=== PATIENT | female | born 1995 | race Caucasian/White ===

== ENCOUNTER 2016-10-26 16:27 | Inpatient (IN) | payer OTHER ==
[2016-10-26 19:22] VITALS: BMI 26.5
--- NOTE | 2016-10-26 21:08 | HP ---
Admission ROS [facility] Chief Complaint: I WANT TO GO TO REHAB Allergies/Adverse Reactions: Allergies Allergy/AdvReac Type Severity Reaction Status Date / Time No Known Allergies Allergy Verified 02/10/16 15:33 History of Present Illness: 21 YEARS OLD FEMALE WITH LONG HISTORY OF OPIOID COCAINE NICOTINE DEPENDENCE DENIES MEDICAL ISSUE HAS BIPOLAR II IS ADMITTED TO REHAB Exam Limitations: No Limitations - Ebola screening Have you traveled outside of the country in the last 21 days: No Have you had contact with anyone from an Ebola affected area: No Have you been sick,other than usual withdrawal symptoms: No Do you have a fever: No - Review of Systems Constitutional: Weight Stable EENT: reports: No Symptoms Reported Respiratory: reports: No Symptoms reported Cardiac: reports: No Symptoms Reported GI: reports: Indigestion : reports: No Symptoms Reported Musculoskeletal: reports: No Symptoms Reported Integumentary: reports: No Symptoms Reported Neuro: reports: No Symptoms reported Endocrine: reports: No Symptoms Reported Hematology: reports: No Symptoms Reported Psychiatric: reports: Judgement Intact, Orientated x3, Anxious, Depressed Other Systems: Reviewed and Negative Patient History - Patient Medical History Hx Anemia: Yes (X 3 YEARS NO TREATMENT) Hx Asthma: No Hx Chronic Obstructive Pulmonary Disease (COPD): No Hx Cancer: No Hx Cardiac Disorders: No Hx Congestive Heart Failure: No Hx Hypertension: No Hx Hypercholesterolemia: No Hx Pacemaker: No HX Cerebrovascular Accident: No Hx Seizures: No Hx Dementia: No Hx Diabetes: No Hx Gastrointestinal Disorders: Yes Hx Liver Disease: No Hx Genitourinary Disorders: No Hx Sexually Transmitted Disorders: No Hx Renal Disease (ESRD): No Hx Thyroid Disease: No Hx Human Immunodeficiency Virus (HIV): No (LAST O01/20 NEGATIVE) Hx Hepatitis C: No Hx Depression: Yes Hx Suicide Attempt: No Hx Bipolar Disorder: No Hx Schizophrenia: No - Patient Surgical History Past Surgical History: Yes Hx Neurologic Surgery: No Hx Cataract Extraction: No Hx Cardiac Surgery: No Hx Lung Surgery: No Hx Breast Surgery: No Hx Breast Biopsy: No Hx Abdominal Surgery: Yes (APPENDECTOMY AGE AGE OF 6 YEARS) Hx Appendectomy: No Hx Cholecystectomy: No Hx Genitourinary Surgery: No Hx Section: No Hx Orthopedic Surgery: Yes (LEFT LEG FX 2013 [facility]) Hx Hysterectomy: No Anesthesia Reaction: No - PPD History Previous Implant?: Yes Documented Results: Negative w/o proof Implanted On Prior R Admission?: Yes Date: 11/05/15 Results: NEG PPD to be Administered?: Yes - Reproductive History Patient is a Female of Child Bearing Age (11 -55 yrs old): Yes Last Menstrual Period: 09/24/16 Patient : No - Smoking Cessation Smoking history: Current every day smoker Have you smoked in the past 12 months: Yes Aproximately how many cigarettes per day: 5 Cigars Per Day: 0 Hx Chewing Tobacco Use: No Initiated information on smoking cessation: Yes 'Breaking Loose' booklet given: 10/26/16 - Substance & Tx. History Hx Alcohol Use: No Hx Substance Use: Yes Substance Use Type: Cocaine, Opiates Hx Substance Use Treatment: Yes - Substances Abused Heroin Route: Injection Frequency: Daily Amount used: 9 BAGS Age of first use: 16 Date of Last Use: 09/26/16 Cocaine Route: Injection Frequency: Daily Amount used: 100$ Age of first use: 18 Date of Last Use: 09/26/16 Family Disease History - Family Disease History Family Disease History: Heart Disease: Grandparent (HTN), Mother (HTN), Other: Father (alcohol) Admission Physical Exam S - Vital Signs Vital Signs: Vital Signs - 24 hr 10/26/16 19:18 Temperature 97.8 F Pulse Rate 71 Respiratory 18 Rate Blood Pressure 124/85 - Physical General Appearance: Yes: No Apparent Distress, Nourished, Appropriately Dressed HEENTM: Yes: Hearing grossly Normal, Normal ENT Inspection, Normocephalic, Normal Voice Respiratory: Yes: Chest Non-Tender, Lungs Clear, Normal Breath Sounds, No Respiratory Distress, No Accessory Muscle Use Neck: Yes: Supple, Trachea in good position Breast: Yes: Breasts Symetrical Cardiology: Yes: Regular Rhythm, Regular Rate, S1, S2 Abdominal: Yes: Non Tender, Soft Genitourinary: Yes: Within Normal Limits Back: Yes: Normal Inspection Musculoskeletal: Yes: full range of Motion, Gait Steady Extremities: Yes: Normal Inspection, Normal Range of Motion, Non-Tender Neurological: Yes: Fully Oriented, Alert, Motor Strength 5/5, Normal Response, Depressed Affect Integumentary: Yes: Warm, Track Parikh (OLD - "A MONTH AGO") Lymphatic: Yes: Within Normal Limits - Diagnostic (1) Nicotine dependence Current Visit: Yes Status: Acute Qualifiers: Nicotine product type: cigarettes Substance use status: in withdrawal Qualified Code(s): F17.213 - Nicotine dependence, cigarettes, with withdrawal (2) Opioid dependence with withdrawal Current Visit: Yes Status: Acute (3) Cocaine dependence, uncomplicated Current Visit: Yes Status: Chronic (4) GERD (gastroesophageal reflux disease) Current Visit: Yes Status: Chronic Qualifiers: Esophagitis presence: without esophagitis Qualified Code(s): K21.9 - Gastro-esophageal reflux disease without esophagitis Cleared for Admission [facility] - Detox or Rehab [facility] Level of Care: Observation Bed Detox Regimen/Protocol: Not Applicable Claeared for Rehab Admission: Yes [facility] Breath Alcohol Content Breath Alcohol Content: 0 Urine Pregancy Test - Result Urine Test Results: Negative- NO Line Present Urine Drug Screen - Results Drug Screen Negative: Yes
[2016-10-26] MEDS ORDERED: MAGNESIUM HYDROX 2400MG/30ML ORAL SUSPENSION 30 ML CUP PO PRN (21:25)
[2016-10-26] MEDS ORDERED: MAG HYDROX/AL HYDROX/SIMETH 30 ML UNIT-DOSE CUP PO PRN (21:25)
[2016-10-26] MEDS ORDERED: P-EPHED 60MG/TRIPROLIDI 2.5MG TABLET PO PRN (21:25)
[2016-10-26] MEDS ORDERED: guaiFENesin/D-METHORPHAN HB 10 ML UNIT-DOSE CUPS PO PRN (21:25)
[2016-10-26] MEDS ORDERED: LOPERAMIDE HCL 2 MG CAPSULE PO PRN (21:25)
[2016-10-26] MEDS ORDERED: MENTHOL/PHENOL 1 EACH UD MM PRN (21:25)
[2016-10-26] MEDS ORDERED: diphenhydrAMINE HCL 50 MG CAPSULE PO PRN (21:25)
[2016-10-26] MEDS ORDERED: NICOTINE POLACRILEX 2 MG GUM BC PRN (21:25)
[2016-10-26] MEDS ORDERED: MAGNESIUM CITRATE 300 ML BOTTLE PO PRN (21:25)
[2016-10-26] MEDS ORDERED: LITHIUM CARBONATE 300 MG CAPSULE (FP) PO SCH (23:00)
[2016-10-26 23:02] LABS: URINE APPEARANCE CLOUDY; URINE BILIRUBIN NEGATIVE (NEGATIVE); URINE BLOOD NEGATIVE (NEGATIVE); URINE COLOR LTYELLOW; URINE GLUCOSE (UA) NEGATIVE (NEGATIVE); URINE KETONE NEGATIVE (NEGATIVE); URINE NITRITE NEGATIVE (NEGATIVE); URINE PROTEIN NEGATIVE (NEGATIVE); URINE UROBILINOGEN NEGATIVE E.U./dl (0.2-1.0)
[2016-10-26 23:10] LABS: URINE LEUK ESTERASE 1+ (NEGATIVE)
[2016-10-26 23:13] LABS: URINE MUCUS RARE; URINE RBC 1 /hpf (0-3); URINE WBC 3 /hpf (3-5)
[2016-10-26] MEDS: THIAMINE HCL 100 MG TABLET (FP) PO SCH (23:22)
[2016-10-26] MEDS: RANITIDINE HCL 150 MG TABLET (FP) PO SCH (23:22)
[2016-10-26] MEDS: QUEtiapine FUMARATE 300 MG TABLET PO SCH (23:22)
[2016-10-26] MEDS: LITHIUM CARBONATE 300 MG CAPSULE (FP) PO SCH (23:43)
[2016-10-27] MEDS ORDERED: PT OWN MED DRAWER 7, Y5N ONE ×2 (05:50→08:49)
[2016-10-27] MEDS: LITHIUM CARBONATE 300 MG CAPSULE (FP) PO SCH ×3 (06:57→21:26)
[2016-10-27] MEDS: PRENATAL VITAMINS W/ FOLIC ACID TABLET (FP) PO SCH (09:37)
[2016-10-27] MEDS: NICOTINE 14 MG/24 HOURS TOPICAL PATCH TD SCH (09:37)
[2016-10-27] MEDS: RANITIDINE HCL 150 MG TABLET (FP) PO SCH ×2 (09:38→21:26)
[2016-10-27 10:11] LABS: MCHC 33.4 g/dl (32.0-36.0); MEAN CELL VOLUME 83.9 fl (80-96); PLATELET COUNT 199 K/MM3 (134-434); RDW 13.5 % (11.6-15.6); WHITE BLOOD COUNT 5.6 K/mm3 (4.0-10.0)
[2016-10-27 10:35] LABS: ALBUMIN 3.7 g/dl (3.4-5.0); ANION GAP 12 (8-16); CO2 24 mmol/L (21-32); CREATININE 0.9 mg/dL (0.55-1.02); GLUCOSE,RANDOM 126 mg/dL (74-106); SGOT/AST 15 U/L (15-37); SGPT/ALT 20 U/L (12-78)
[2016-10-27 10:37] LABS: ALK PHOS 66 U/L (45-117); BILIRUBIN,TOTAL 0.4 mg/dL (0.2-1.0); TOT PROT 7.8 g/dl (6.4-8.2)
--- NOTE | 2016-10-27 11:44 | EKG ---
Test Reason : Blood Pressure : / mmHG Vent. Rate : 080 BPM Atrial Rate : 080 BPM P-R Int : 206 ms QRS Dur : 082 ms QT Int : 394 ms P-R-T Axes : 060 088 067 degrees QTc Int : 454 ms NORMAL SINUS RHYTHM CANNOT RULE OUT SEPTAL INFARCT , AGE UNDETERMINED ABNORMAL ECG NO PREVIOUS ECGS AVAILABLE Confirmed by EFREN ALVAREZ, JOYCE ([id number]) on 10/27/2016 11:44:07 AM Referred By: Thao Lu Confirmed By:JOYCE SCHWARTZ MD
[2016-10-27] MEDS: ACETAMINOPHEN 325 MG TABLET (FP) PO PRN (15:11)
[2016-10-27] MEDS: THIAMINE HCL 100 MG TABLET (FP) PO SCH (21:25)
[2016-10-27] MEDS: QUEtiapine FUMARATE 300 MG TABLET PO SCH (21:26)
[2016-10-28] MEDS: LITHIUM CARBONATE 300 MG CAPSULE (FP) PO SCH ×3 (06:42→21:27)
[2016-10-28] MEDS: PRENATAL VITAMINS W/ FOLIC ACID TABLET (FP) PO SCH (10:19)
[2016-10-28] MEDS: NICOTINE 14 MG/24 HOURS TOPICAL PATCH TD SCH (10:19)
[2016-10-28] MEDS: RANITIDINE HCL 150 MG TABLET (FP) PO SCH ×2 (10:19→21:27)
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
[2016-10-28] MEDS: FLUoxetine HCL 20 MG CAPSULE (FP) PO SCH (12:00)
[2016-10-28] MEDS: ACETAMINOPHEN 325 MG TABLET (FP) PO PRN (17:05)
[2016-10-28] MEDS: THIAMINE HCL 100 MG TABLET (FP) PO SCH (21:26)
[2016-10-28] MEDS: QUEtiapine FUMARATE 300 MG TABLET PO SCH (21:27)
[2016-10-28] MEDS: hydrOXYzine PAMOATE 50 MG CAPSULE (FP) PO PRN (21:28)
[2016-10-29] MEDS: LITHIUM CARBONATE 300 MG CAPSULE (FP) PO SCH ×3 (06:25→21:29)
[2016-10-29] MEDS: RANITIDINE HCL 150 MG TABLET (FP) PO SCH ×2 (10:34→21:30)
[2016-10-29] MEDS: FLUoxetine HCL 20 MG CAPSULE (FP) PO SCH (10:34)
[2016-10-29] MEDS: NICOTINE 14 MG/24 HOURS TOPICAL PATCH TD SCH (10:35)
[2016-10-29] MEDS: PRENATAL VITAMINS W/ FOLIC ACID TABLET (FP) PO SCH (10:35)
[2016-10-29] MEDS ORDERED: PT OWN MED DRAWER 7, Y5N ONE (12:16)
[2016-10-29] MEDS: hydrOXYzine PAMOATE 50 MG CAPSULE (FP) PO PRN (13:07)
--- NOTE | 2016-10-29 15:12 | PN ---
[facility] Progress Note Note: left leg pain/spasm,was on flexeril resume flexeril
[2016-10-29] MEDS: CYCLOBENZAPRINE HCL 10 MG TABLET (FP) PO PRN (18:59)
[2016-10-29] MEDS: THIAMINE HCL 100 MG TABLET (FP) PO SCH (21:29)
[2016-10-29] MEDS: QUEtiapine FUMARATE 300 MG TABLET PO SCH (21:29)
[2016-10-30] MEDS: LITHIUM CARBONATE 300 MG CAPSULE (FP) PO SCH ×3 (06:21→21:42)
[2016-10-30] MEDS: RANITIDINE HCL 150 MG TABLET (FP) PO SCH ×2 (10:27→21:42)
[2016-10-30] MEDS: NICOTINE 14 MG/24 HOURS TOPICAL PATCH TD SCH (10:27)
[2016-10-30] MEDS: FLUoxetine HCL 20 MG CAPSULE (FP) PO SCH (10:27)
[2016-10-30] MEDS: PRENATAL VITAMINS W/ FOLIC ACID TABLET (FP) PO SCH (10:28)
[2016-10-30] MEDS: CYCLOBENZAPRINE HCL 10 MG TABLET (FP) PO PRN ×2 (13:24→21:42)
[2016-10-30] MEDS: QUEtiapine FUMARATE 300 MG TABLET PO SCH (21:42)
[2016-10-30] MEDS: THIAMINE HCL 100 MG TABLET (FP) PO SCH (21:42)
[2016-10-31] MEDS: LITHIUM CARBONATE 300 MG CAPSULE (FP) PO SCH ×3 (07:15→21:19)
[2016-10-31] MEDS: NICOTINE 14 MG/24 HOURS TOPICAL PATCH TD SCH (09:56)
[2016-10-31] MEDS: CYCLOBENZAPRINE HCL 10 MG TABLET (FP) PO PRN ×2 (09:57→21:21)
[2016-10-31] MEDS: RANITIDINE HCL 150 MG TABLET (FP) PO SCH ×2 (09:57→21:19)
[2016-10-31] MEDS: FLUoxetine HCL 20 MG CAPSULE (FP) PO SCH (09:57)
[2016-10-31] MEDS: PRENATAL VITAMINS W/ FOLIC ACID TABLET (FP) PO SCH (09:57)
[2016-10-31] MEDS: QUEtiapine FUMARATE 300 MG TABLET PO SCH (21:19)
[2016-10-31] MEDS: THIAMINE HCL 100 MG TABLET (FP) PO SCH (21:19)
[2016-11-01] MEDS: LITHIUM CARBONATE 300 MG CAPSULE (FP) PO SCH ×3 (07:13→21:32)
[2016-11-01] MEDS: PRENATAL VITAMINS W/ FOLIC ACID TABLET (FP) PO SCH (10:00)
[2016-11-01] MEDS: FLUoxetine HCL 20 MG CAPSULE (FP) PO SCH (10:00)
[2016-11-01] MEDS: CYCLOBENZAPRINE HCL 10 MG TABLET (FP) PO PRN ×2 (10:00→21:32)
[2016-11-01] MEDS: RANITIDINE HCL 150 MG TABLET (FP) PO SCH ×2 (10:00→21:32)
[2016-11-01] MEDS: NICOTINE 14 MG/24 HOURS TOPICAL PATCH TD SCH (10:00)
[2016-11-01] MEDS: THIAMINE HCL 100 MG TABLET (FP) PO SCH (21:31)
[2016-11-01] MEDS: QUEtiapine FUMARATE 300 MG TABLET PO SCH (21:32)
[2016-11-02] MEDS: LITHIUM CARBONATE 300 MG CAPSULE (FP) PO SCH ×4 (06:43→21:35)
[2016-11-02] MEDS: NICOTINE 14 MG/24 HOURS TOPICAL PATCH TD SCH (10:42)
[2016-11-02] MEDS: RANITIDINE HCL 150 MG TABLET (FP) PO SCH ×2 (10:42→21:35)
[2016-11-02] MEDS: FLUoxetine HCL 20 MG CAPSULE (FP) PO SCH (10:42)
[2016-11-02] MEDS: PRENATAL VITAMINS W/ FOLIC ACID TABLET (FP) PO SCH (10:42)
[2016-11-02] MEDS: CYCLOBENZAPRINE HCL 10 MG TABLET (FP) PO PRN ×2 (10:43→21:36)
[2016-11-02] MEDS: THIAMINE HCL 100 MG TABLET (FP) PO SCH (21:35)
[2016-11-02] MEDS: QUEtiapine FUMARATE 300 MG TABLET PO SCH (21:35)
[2016-11-03] MEDS: LITHIUM CARBONATE 300 MG CAPSULE (FP) PO SCH ×3 (06:42→21:24)
[2016-11-03] MEDS: NICOTINE 14 MG/24 HOURS TOPICAL PATCH TD SCH (10:32)
[2016-11-03] MEDS: PRENATAL VITAMINS W/ FOLIC ACID TABLET (FP) PO SCH (10:33)
[2016-11-03] MEDS: FLUoxetine HCL 20 MG CAPSULE (FP) PO SCH (10:33)
[2016-11-03] MEDS: RANITIDINE HCL 150 MG TABLET (FP) PO SCH ×2 (10:33→21:24)
[2016-11-03] MEDS: CYCLOBENZAPRINE HCL 10 MG TABLET (FP) PO PRN ×2 (10:34→21:24)
[2016-11-03] MEDS: THIAMINE HCL 100 MG TABLET (FP) PO SCH (21:24)
[2016-11-03] MEDS: QUEtiapine FUMARATE 300 MG TABLET PO SCH (21:24)
[2016-11-04] MEDS: LITHIUM CARBONATE 300 MG CAPSULE (FP) PO SCH ×3 (06:18→21:26)
[2016-11-04] MEDS: FLUoxetine HCL 20 MG CAPSULE (FP) PO SCH (10:15)
[2016-11-04] MEDS: PRENATAL VITAMINS W/ FOLIC ACID TABLET (FP) PO SCH (10:15)
[2016-11-04] MEDS: RANITIDINE HCL 150 MG TABLET (FP) PO SCH ×2 (10:15→21:24)
[2016-11-04] MEDS: CYCLOBENZAPRINE HCL 10 MG TABLET (FP) PO PRN ×2 (10:16→21:24)
[2016-11-04] MEDS: NICOTINE 14 MG/24 HOURS TOPICAL PATCH TD SCH (10:17)
--- NOTE | 2016-11-04 13:52 | PN ---
Psychiatric Progress Note Vital Signs: Vital Signs Period Temp Pulse Resp BP Sys/Barraza Pulse Ox Last 24 Hr 97.9 F 90 16-18 110/73 Date of Session: 11/04/16 Chief Complaint:: [place] makes me feel funny. HPI: Opioid,Cocaine dependence comorbid with Bipolar disorder. ROS: Anemia,GERD. Current Medications: Active Medications Generic Name Dose Route Start Last Admin Trade Name Freq PRN Reason Stop Dose Admin Acetaminophen 650 mg 10/26/16 21:25 10/28/16 17:05 Tylenol - PO 650 mg Q4H PRN Administration PAIN Al Hydroxide/Mg Hydroxide 30 ml 10/26/16 21:25 10/31/16 13:35 Mylanta Oral Suspension - PO 30 ml Q6H PRN Administration DYSPEPSIA Cyclobenzaprine HCl 10 mg 10/29/16 15:11 11/04/16 10:16 Flexeril - PO 10 mg TID PRN Administration MUSCLE SPASMS Diphenhydramine HCl 50 mg 10/26/16 21:25 Benadryl - PO HSMR1 PRN INSOMNIA Eucalyptus/Menthol/Phenol/Sorbitol 1 each 10/26/16 21:25 Cepastat Lozenge - MM Q4H PRN SORE THROAT Fluoxetine HCl 20 mg 10/28/16 11:45 11/04/16 10:15 Prozac - PO 20 mg DAILY POLLY Administration Guaifenesin 10 ml 10/26/16 21:25 Robitussin Dm - PO Q6H PRN COUGH Hydroxyzine Pamoate 50 mg 10/26/16 21:25 10/29/16 13:07 Vistaril - PO 50 mg Q4H PRN Administration AGITATION Loperamide HCl 4 mg 10/26/16 21:25 Imodium - PO Q6H PRN DIARRHEA Magnesium Citrate 300 ml 10/26/16 21:25 Citroma - PO Q48H PRN CONSTIPATION Magnesium Hydroxide 30 ml 10/26/16 21:25 Milk Of Magnesia - PO DAILY PRN CONSTIPATION Nicotine 14 mg 10/27/16 10:00 11/04/16 10:17 Nicoderm Patch - TD 14 mg DAILY POLLY Administration Nicotine Polacrilex 2 mg 10/26/16 21:25 Nicorette Gum - BC Q2H PRN NICOTINE REPLACEMENT RX Multivit/Folic Acid/Iron 1 tab 10/27/16 10:00 11/04/16 10:15 Vitamins (Sjr) - PO 1 tab DAILY POLLY Administration Pseudoephedrine/Triprolidine 1 combo 10/26/16 21:25 Actifed - PO TID PRN NASAL CONGESTION Quetiapine Fumarate 300 mg 10/26/16 22:00 11/03/16 21:24 Seroquel - PO 300 mg HS POLLY Administration Ranitidine HCl 150 mg 10/26/16 22:00 11/04/16 10:15 Zantac - PO 150 mg BID POLLY Administration Thiamine HCl 100 mg 10/26/16 22:00 11/03/16 21:24 Vitamin B1 - PO 100 mg HS POLLY Administration Current Side Effect: No Lab tests ordered: No Lab tests reviewed: Yes Provider note:: Patient was seen today due to ongoing problems related to [place] 300 mg po tid,stating that she feels drowsy and not herself due to above mentioned medication.Chart was revuewed ,treatment plan and medications has been discussed with the patient.Li 300 mg po tid will be adjusted to 300 mg po hs.Patient will continue other medications as per plan. Psychoeducation, supportive therapy provided. Total face to face time:: 30 Psychiatric Treatment Plan - Problem List (1) Nicotine dependence Qualifiers: Nicotine product type: cigarettes Substance use status: in withdrawal Qualified Code(s): F17.213 - Nicotine dependence, cigarettes, with withdrawal (3) GERD (gastroesophageal reflux disease) Qualifiers: Esophagitis presence: without esophagitis Qualified Code(s): K21.9 - Gastro-esophageal reflux disease without esophagitis (5) Cocaine dependence Qualifiers: Substance use status: uncomplicated Qualified Code(s): F14.20 - Cocaine dependence, uncomplicated
--- NOTE | 2016-11-04 15:12 | PN ---
[facility] Progress Note Note: test is negative.
[2016-11-04] MEDS: THIAMINE HCL 100 MG TABLET (FP) PO SCH (21:24)
[2016-11-04] MEDS: QUEtiapine FUMARATE 300 MG TABLET PO SCH (21:24)
[2016-11-05] MEDS: NICOTINE 14 MG/24 HOURS TOPICAL PATCH TD SCH (10:11)
[2016-11-05] MEDS: FLUoxetine HCL 20 MG CAPSULE (FP) PO SCH (10:12)
[2016-11-05] MEDS: PRENATAL VITAMINS W/ FOLIC ACID TABLET (FP) PO SCH (10:12)
[2016-11-05] MEDS: RANITIDINE HCL 150 MG TABLET (FP) PO SCH ×2 (10:12→21:27)
[2016-11-05] MEDS: ACETAMINOPHEN 325 MG TABLET (FP) PO PRN (11:18)
[2016-11-05] MEDS ORDERED: ONDANSETRON *ODT* 4 MG TABLET SL PRN (11:19)
[2016-11-05] MEDS: LITHIUM CARBONATE 300 MG CAPSULE (FP) PO SCH (21:27)
[2016-11-05] MEDS: THIAMINE HCL 100 MG TABLET (FP) PO SCH (21:27)
[2016-11-05] MEDS: QUEtiapine FUMARATE 300 MG TABLET PO SCH (21:27)
[2016-11-05] MEDS: CYCLOBENZAPRINE HCL 10 MG TABLET (FP) PO PRN (21:27)
[2016-11-06] MEDS: PRENATAL VITAMINS W/ FOLIC ACID TABLET (FP) PO SCH (10:15)
[2016-11-06] MEDS: RANITIDINE HCL 150 MG TABLET (FP) PO SCH ×2 (10:15→21:26)
[2016-11-06] MEDS: FLUoxetine HCL 20 MG CAPSULE (FP) PO SCH (10:15)
[2016-11-06] MEDS: NICOTINE 14 MG/24 HOURS TOPICAL PATCH TD SCH (10:15)
[2016-11-06] MEDS: QUEtiapine FUMARATE 300 MG TABLET PO SCH (21:26)
[2016-11-06] MEDS: LITHIUM CARBONATE 300 MG CAPSULE (FP) PO SCH (21:26)
[2016-11-06] MEDS: CYCLOBENZAPRINE HCL 10 MG TABLET (FP) PO PRN (21:26)
[2016-11-06] MEDS: THIAMINE HCL 100 MG TABLET (FP) PO SCH (21:26)
[2016-11-07] MEDS: NICOTINE 14 MG/24 HOURS TOPICAL PATCH TD SCH (10:19)
[2016-11-07] MEDS: FLUoxetine HCL 20 MG CAPSULE (FP) PO SCH (10:20)
[2016-11-07] MEDS: RANITIDINE HCL 150 MG TABLET (FP) PO SCH ×2 (10:20→21:39)
[2016-11-07] MEDS: PRENATAL VITAMINS W/ FOLIC ACID TABLET (FP) PO SCH (10:20)
[2016-11-07] MEDS: THIAMINE HCL 100 MG TABLET (FP) PO SCH (21:38)
[2016-11-07] MEDS: CYCLOBENZAPRINE HCL 10 MG TABLET (FP) PO PRN (21:38)
[2016-11-07] MEDS: LITHIUM CARBONATE 300 MG CAPSULE (FP) PO SCH (21:38)
[2016-11-07] MEDS: QUEtiapine FUMARATE 300 MG TABLET PO SCH (21:39)
[2016-11-08] MEDS: FLUoxetine HCL 20 MG CAPSULE (FP) PO SCH (09:56)
[2016-11-08] MEDS: NICOTINE 14 MG/24 HOURS TOPICAL PATCH TD SCH (09:56)
[2016-11-08] MEDS: PRENATAL VITAMINS W/ FOLIC ACID TABLET (FP) PO SCH (09:56)
[2016-11-08] MEDS: RANITIDINE HCL 150 MG TABLET (FP) PO SCH ×2 (09:56→21:21)
[2016-11-08] MEDS: QUEtiapine FUMARATE 300 MG TABLET PO SCH (21:21)
[2016-11-08] MEDS: LITHIUM CARBONATE 300 MG CAPSULE (FP) PO SCH (21:21)
[2016-11-08] MEDS: THIAMINE HCL 100 MG TABLET (FP) PO SCH (21:21)
[2016-11-08] MEDS: CYCLOBENZAPRINE HCL 10 MG TABLET (FP) PO PRN (21:22)
[2016-11-09 06:57] VITALS: PULSE 98
[2016-11-09] MEDS: FLUoxetine HCL 20 MG CAPSULE (FP) PO SCH (10:44)
[2016-11-09] MEDS: PRENATAL VITAMINS W/ FOLIC ACID TABLET (FP) PO SCH (10:44)
[2016-11-09] MEDS: NICOTINE 14 MG/24 HOURS TOPICAL PATCH TD SCH (10:44)
[2016-11-09] MEDS: RANITIDINE HCL 150 MG TABLET (FP) PO SCH ×2 (10:47→21:26)
[2016-11-09] MEDS: LITHIUM CARBONATE 300 MG CAPSULE (FP) PO SCH (21:26)
[2016-11-09] MEDS: QUEtiapine FUMARATE 300 MG TABLET PO SCH (21:26)
[2016-11-09] MEDS: THIAMINE HCL 100 MG TABLET (FP) PO SCH (21:26)
[2016-11-10 07:28] VITALS: BP 101/58; TEMP 98.3
[2016-11-10] MEDS: PRENATAL VITAMINS W/ FOLIC ACID TABLET (FP) PO SCH (10:20)
[2016-11-10] MEDS: NICOTINE 14 MG/24 HOURS TOPICAL PATCH TD SCH (10:20)
[2016-11-10] MEDS: RANITIDINE HCL 150 MG TABLET (FP) PO SCH (10:20)
[2016-11-10] MEDS: FLUoxetine HCL 20 MG CAPSULE (FP) PO SCH (10:20)
== END 2016-11-10 18:50 | disposition left against medical advice (07) | DRG 770 ==
LOC: YASAS 16:27 → Y3E 21:15
PROVIDERS: ADMIT Psychiatry & Neurology Psychiatry; ATTEND Psychiatry & Neurology Psychiatry
PROC: HZ42ZZZ Group Counseling for Substance Abuse Treatment, Cognitive-Behavioral (ICD-10-PCS; principal; 2016-11-10)
DX: F11.23 Opioid dependence with withdrawal (principal); F14.20 Cocaine dependence, uncomplicated; F17.210 Nicotine dependence, cigarettes, uncomplicated; F19.24 Other psychoactive substance dependence with psychoactive substance-induced mood disorder; F31.9 Bipolar disorder, unspecified; K21.9 Gastro-esophageal reflux disease without esophagitis; D64.9 Anemia, unspecified
CPT/HCPCS: 36415; 80053; 81003; 81015; 82947; 84702; 85027; 86593; 93005; 93010

== ENCOUNTER 2017-07-25 19:32 | Inpatient (IN) | payer OTHER ==
[2017-07-25 19:54] VITALS: BMI 30.8
--- NOTE | 2017-07-25 21:21 | HP ---
COWS - Scale Resting Pulse: 0= DC 80 or Below Sweatin=Flushed/Facial Moisture Restless Observation: 5= Unable to Sit Still Pupil Size: 1= Pupils >than Normal Bone or Joint Aches: 4=Acute Joint/Muscle Pain Runny Nose/ Eye Tearin= Runny Nose/Eyes GI Upset > 30mins: 1= Stomach Cramp Tremor Observation: 4= Gross Tremor/Twitching Yawning Observation: 0= None Anxiety or Irritability: 4=Extreme Anxiety Goose Flesh Skin: 0=Smooth Skin COWS Score: 23 Admission ROS S - [facility] Chief Complaint: SEEKING DETOX FOR OPIATE WITHDRAWAL SX'S. Allergies/Adverse Reactions: Allergies Allergy/AdvReac Type Severity Reaction Status Date / Time strawberry Allergy Severe Swelling Verified 07/25/17 21:16 No Known Drug Allergies Allergy Verified 07/25/17 21:16 History of Present Illness: 22 Y.O. FEMALE WITH HX/O OPIOID DEPENDENCE HERE FOR DETOX. CLIENT IS KNOWN TO THIS PROGRAM. LAST HERE IN 10/2016 IN REHAB. SELF REFERRED. DENIES ANY SIGNIFICANT PERIOD OF CLEAN TIME. DENIES LEGALS Exam Limitations: No Limitations - Ebola screening Have you traveled outside of the country in the last 21 days: No (N) Have you had contact with anyone from an Ebola affected area: No Have you been sick,other than usual withdrawal symptoms: No Do you have a fever: No - Review of Systems Constitutional: Chills, Loss of Appetite, Malaise, Night Sweats, Changes in sleep EENT: reports: Other ([place]) Respiratory: reports: No Symptoms reported Cardiac: reports: No Symptoms Reported GI: reports: Constipated, Poor Appetite, Poor Fluid Intake, Abdominal cramping : reports: No Symptoms Reported Musculoskeletal: reports: Back Pain Integumentary: reports: No Symptoms Reported Neuro: reports: No Symptoms reported Endocrine: reports: No Symptoms Reported Hematology: reports: No Symptoms Reported Psychiatric: reports: Anxious, Depressed, other (INSOMNIA, PTSD, BIPOLAR) Other Systems: Reviewed and Negative Patient History - Patient Medical History Hx Anemia: Yes (HX/O) Hx Asthma: No Hx Chronic Obstructive Pulmonary Disease (COPD): No Hx Cancer: No Hx Cardiac Disorders: No Hx Congestive Heart Failure: No Hx Hypertension: No Hx Hypercholesterolemia: No Hx Pacemaker: No HX Cerebrovascular Accident: No Hx Seizures: No Hx Dementia: No Hx Diabetes: No Hx Gastrointestinal Disorders: No Hx Liver Disease: No Hx Genitourinary Disorders: No Hx Sexually Transmitted Disorders: No Hx Renal Disease (ESRD): No Hx Thyroid Disease: No Hx Human Immunodeficiency Virus (HIV): No Hx Hepatitis C: No Hx Depression: Yes Hx Suicide Attempt: No Hx Bipolar Disorder: Yes Hx Schizophrenia: No Other Medical History: PTSD, INSOMNIA - Patient Surgical History Past Surgical History: Yes Hx Neurologic Surgery: No Hx Cataract Extraction: No Hx Cardiac Surgery: No Hx Lung Surgery: No Hx Breast Surgery: No Hx Breast Biopsy: No Hx Abdominal Surgery: Yes (APPENDECTOMY AGE AGE OF 6 YEARS) Hx Appendectomy: No Hx Cholecystectomy: No Hx Genitourinary Surgery: No Hx Section: No Hx Orthopedic Surgery: Yes (LEFT LEG FX 2013 [facility]) Hx Hysterectomy: No Anesthesia Reaction: No - PPD History Previous Implant?: Yes Documented Results: Negative w/proof Implanted On Prior [facility] Admission?: Yes Date: 11/05/15 Results: NEG PPD to be Administered?: Yes - Reproductive History Patient is a Female of Child Bearing Age (11 -55 yrs old): Yes Last Menstrual Period: 07/24/17 Patient : No (NEG [facility]) - Smoking Cessation Smoking history: Current every day smoker Have you smoked in the past 12 months: Yes Aproximately how many cigarettes per day: 5 Cigars Per Day: 0 Hx Chewing Tobacco Use: No Initiated information on smoking cessation: Yes 'Breaking Loose' booklet given: 07/25/17 - Substance & Tx. History Hx Alcohol Use: No Hx Substance Use: Yes Substance Use Type: Heroin, Marijuana, Opiates ([facility]) Hx Substance Use Treatment: Yes ([facility]) - Substances Abused HEROIN Route: Injection Frequency: Daily Amount used: 10 BAGS Age of first use: 16 Date of Last Use: 07/25/[address] ST[address] METHADONE Route: Oral Frequency: 1-2 times per week Amount used: 20 Age of first use: 22 Date of Last Use: 07/22/17 THC Route: Smoking Frequency: 3-6 times per week Amount used: 2 BLUNTS Age of first use: 13 Date of Last Use: 07/24/17 Family Disease History - Family Disease History Family Disease History: Heart Disease: Grandparent (HTN), Mother (HTN), Other: Father (alcohol) Admission Physical Exam [facility] - Vital Signs Vital Signs: Vital Signs - 24 hr 07/25/17 19:51 Temperature 97.7 F Pulse Rate 78 Respiratory 18 Rate Blood Pressure 120/83 - Physical General Appearance: Yes: Appropriately Dressed, Mild Distress, Tremorous, Anxious HEENTM: Yes: EOMI, Normocephalic, Normal Voice, BRUNO, Pharynx Normal Respiratory: Yes: Chest Non-Tender, Lungs Clear, Normal Breath Sounds, No Respiratory Distress, No Accessory Muscle Use Neck: Yes: No masses,lesions,Nodules, Supple, Trachea in good position Breast: Yes: Breast Exam Deferred Cardiology: Yes: Regular Rhythm, Regular Rate, S1, S2 Abdominal: Yes: Normal Bowel Sounds, Non Tender, Soft Genitourinary: Yes: Within Normal Limits Back: Yes: Normal Inspection Musculoskeletal: Yes: full range of Motion, Gait Steady Extremities: Yes: Normal Range of Motion, Non-Tender, Tremors Neurological: Yes: travel ot II-XII NML intact, Fully Oriented, Alert, Motor Strength 5/5 Integumentary: Yes: Normal Color, Dry, Warm Lymphatic: Yes: Within Normal Limits - Diagnostic (1) Cannabis dependence Current Visit: No Status: Chronic (2) Nicotine dependence Current Visit: No Status: Chronic Qualifiers: Nicotine product type: cigarettes Substance use status: in withdrawal Qualified Code(s): F17.213 - Nicotine dependence, cigarettes, with withdrawal (3) Opioid dependence with withdrawal Current Visit: No Status: Chronic Cleared for Admission [facility] - Detox or Rehab [facility] Level of Care: Medically Managed Detox Regimen/Protocol: Methadone Claeared for Rehab Admission: No [facility] Breath Alcohol Content Breath Alcohol Content: 0 Urine Pregancy Test - Result Urine Test Results: Negative- NO Line Present Urine Drug Screen - Results Drug Screen Negative: No Urine Drug Screen Results: THC-Marijuana, OPI-Opiates, MTD-Methadone, TCA- Tricyclic Antidepress, OXY-Oxycodone
[2017-07-25] MEDS ORDERED: METHADONE HCL 10 MG TABLET (FOR DETOX USE ONLY) PO ONE ×2 (21:37→23:00)
[2017-07-25] MEDS ORDERED: NICOTINE POLACRILEX 2 MG GUM BC PRN (21:37)
[2017-07-25] MEDS ORDERED: MAGNESIUM CITRATE 300 ML BOTTLE PO PRN (21:37)
[2017-07-25] MEDS ORDERED: IBUPROFEN 400 MG TABLET (FP) PO PRN (21:37)
[2017-07-25] MEDS ORDERED: hydrOXYzine PAMOATE 50 MG CAPSULE (FP) PO PRN (21:37)
[2017-07-25] MEDS ORDERED: guaiFENesin/D-METHORPHAN HB 10 ML UNIT-DOSE CUPS PO PRN (21:37)
[2017-07-25] MEDS ORDERED: MENTHOL/PHENOL 1 EACH UD MM PRN (21:37)
[2017-07-25] MEDS ORDERED: P-EPHED 60MG/TRIPROLIDI 2.5MG TABLET PO PRN (21:37)
[2017-07-25] MEDS ORDERED: ACETAMINOPHEN 325 MG TABLET (FP) PO PRN (21:37)
[2017-07-25] MEDS ORDERED: MAGNESIUM HYDROX 2400MG/30ML ORAL SUSPENSION 30 ML CUP PO PRN (21:37)
[2017-07-25] MEDS ORDERED: MAG HYDROX/AL HYDROX/SIMETH 30 ML UNIT-DOSE CUP PO PRN (21:37)
[2017-07-25] MEDS ORDERED: LOPERAMIDE HCL 2 MG CAPSULE PO PRN (21:37)
[2017-07-25] MEDS: THIAMINE HCL 100 MG TABLET (FP) PO SCH (22:57)
[2017-07-25] MEDS: diazePAM 5 MG TABLET PO PRN (22:57)
[2017-07-25 23:43] LABS: URINE APPEARANCE TURBID; URINE BILIRUBIN NEGATIVE (NEGATIVE); URINE BLOOD 3+ (NEGATIVE); URINE COLOR YELLOW; URINE GLUCOSE (UA) NEGATIVE (NEGATIVE); URINE KETONE NEGATIVE (NEGATIVE); URINE LEUK ESTERASE TRACE (NEGATIVE); URINE NITRITE NEGATIVE (NEGATIVE); URINE UROBILINOGEN NEGATIVE mg/dL (0.2-1.0)
[2017-07-25 23:48] LABS: URINE PROTEIN 1+ (NEGATIVE)
[2017-07-26 00:15] LABS: URINE MUCUS FEW; YEAST MANY
[2017-07-26] MEDS ORDERED: METHADONE HCL 10 MG TABLET (FOR DETOX USE ONLY) PO ONE (10:00)
[2017-07-26] MEDS: PRENATAL VITAMINS W/ FOLIC ACID TABLET (FP) PO SCH (10:38)
[2017-07-26] MEDS: diazePAM 5 MG TABLET PO PRN ×3 (10:38→22:51)
[2017-07-26] MEDS: NICOTINE 14 MG/24 HOURS TOPICAL PATCH TD SCH (10:39)
[2017-07-26 10:41] LABS: HEMOGLOBIN 11.2 GM/dL (10.7-15.3); MCH 26.6 pg (25.7-33.7); MCHC 32.9 g/dl (32.0-36.0); MEAN CELL VOLUME 80.8 fl (80-96); MEAN PLT VOLUME 9.6 fl (7.5-11.1); PLATELET COUNT 168 K/MM3 (134-434); RBC 4.21 M/mm3 (3.60-5.2); RDW 14.2 % (11.6-15.6); WHITE BLOOD COUNT 4.2 K/mm3 (4.0-10.0)
[2017-07-26 10:51] LABS: CHLORIDE 108 mmol/L (98-107); POTASSIUM 3.5 mmol/L (3.5-5.1); SODIUM 142 mmol/L (136-145)
[2017-07-26 11:05] LABS: ALBUMIN 3.3 g/dl (3.4-5.0); ALK PHOS 65 U/L (45-117); ANION GAP 7 (8-16); BILIRUBIN,TOTAL 0.2 mg/dL (0.2-1.0); BLOOD UREA NITROGEN 6 mg/dL (7-18); CALCIUM 8.1 mg/dL (8.5-10.1); CO2 27 mmol/L (21-32); CREATININE 0.7 mg/dL (0.55-1.02); GLUCOSE,RANDOM 81 mg/dL (74-106); SGOT/AST 23 U/L (15-37); SGPT/ALT 29 U/L (12-78); TOT PROT 6.7 g/dl (6.4-8.2)
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
--- NOTE | 2017-07-26 12:35 | PN ---
BHS COWS - Scale Resting Pulse: 1= [place] 81-100 Sweatin=Flushed/Facial Moisture Restless Observation: 3= Extraneous Movement Pupil Size: 0= Normal to Room Light Bone or Joint Aches: 1= Mild Discomfort Runny Nose/ Eye Tearin= Nasal Congestion GI Upset > 30mins: 1= Stomach Cramp Tremor Observation of Outstretched Hands: 2= Slight Tremor Visible Yawning Observation: 1= 1-2x During Session Anxiety or Irritability: 2=Irritable/Anxious Goose Flesh Skin: 0=Smooth Skin COWS Score: 14 BHS Progress Note (SOAP) Subjective: sweats shakes Objective: 07/26/17 12:34 A & O x 3 Sleepy, arousable Vital Signs Temperature 98.2 F 07/26/17 12:02 Pulse Rate 80 07/26/17 12:02 Respiratory Rate 19 07/26/17 12:02 Blood Pressure 132/75 07/26/17 12:02 O2 Sat by Pulse Oximetry (%) Laboratory Last Values WBC 4.2 K/mm3 (4.0-10.0) 07/26/17 08:10 RBC 4.21 M/mm3 (3.60-5.2) 07/26/17 08:10 Hgb 11.2 GM/dL (10.7-15.3) D 07/26/17 08:10 Hct 34.0 % (32.4-45.2) 07/26/17 08:10 MCV 80.8 fl (80-96) 07/26/17 08:10 MCH 26.6 pg (25.7-33.7) 07/26/17 08:10 MCHC 32.9 g/dl (32.0-36.0) 07/26/17 08:10 RDW 14.2 % (11.6-15.6) 07/26/17 08:10 Plt Count 168 K/MM3 (134-434) 07/26/17 08:10 MPV 9.6 fl (7.5-11.1) 07/26/17 08:10 Sodium 142 mmol/L (136-145) 07/26/17 08:10 Potassium 3.5 mmol/L (3.5-5.1) 07/26/17 08:10 Chloride 108 mmol/L (98-107) H 07/26/17 08:10 Carbon Dioxide 27 mmol/L (21-32) 07/26/17 08:10 Anion Gap 7 (8-16) L 07/26/17 08:10 BUN 6 mg/dL (7-18) L 07/26/17 08:10 Creatinine 0.7 mg/dL (0.55-1.02) 07/26/17 08:10 Creat Clearance w eGFR > 60 (>60) 07/26/17 08:10 Random Glucose 81 mg/dL (74-106) 07/26/17 08:10 Calcium 8.1 mg/dL (8.5-10.1) L 07/26/17 08:10 Total Bilirubin 0.2 mg/dL (0.2-1.0) D 07/26/17 08:10 AST 23 U/L (15-37) 07/26/17 08:10 ALT 29 U/L (12-78) 07/26/17 08:10 Alkaline Phosphatase 65 U/L (45-117) 07/26/17 08:10 Total Protein 6.7 g/dl (6.4-8.2) 07/26/17 08:10 Albumin 3.3 g/dl (3.4-5.0) L 07/26/17 08:10 Urine Color Yellow 07/25/17 23:25 Urine Appearance Turbid 07/25/17 23:25 Urine pH 5.0 (5.0-8.0) 07/25/17 23:25 Ur Specific [place] 1.023 (1.001-1.035) 07/25/17 23:25 Urine Protein 1+ (NEGATIVE) H 07/25/17 23:25 Urine Glucose (UA) Negative (NEGATIVE) 07/25/17 23:25 Urine Ketones Negative (NEGATIVE) 07/25/17 23:25 Urine Blood 3+ (NEGATIVE) H 07/25/17 23:25 Urine Nitrite Negative (NEGATIVE) 07/25/17 23:25 Urine Bilirubin Negative (NEGATIVE) 07/25/17 23:25 Urine Urobilinogen Negative mg/dL (0.2-1.0) 07/25/17 23:25 Ur Leukocyte Esterase Trace (NEGATIVE) 07/25/17 23:25 Urine WBC (Auto) 159 /hpf (3-5) 07/25/17 23:25 Urine RBC (Auto) 152 /hpf (0-3) 07/25/17 23:25 Urine Mucus Few 07/25/17 23:25 Urine Yeast Many 07/25/17 23:25 RPR Titer Nonreactive (NONREACTIVE) 07/26/17 08:10 labs noted Assessment: 07/26/17 12:35 withdrawal sx Plan: continue detox
--- NOTE | 2017-07-26 21:42 | PN ---
[facility] Progress Note Note: Patient reports she will like to leave [place] because she is not getting enough Methadone. As per patient prior to admission she was taking street methadone and was not sure how many milligrams she was consuming per day. Patient was advised on the risk and benefits. Reports she continuos to have chills and sweats. Patient AOx3, in no apparent distress. ambulating. Patient agree to continue detox . PRN clonidine 0.1 mg PRN ordered to relieve withdrawal symptoms. Continue detox continue to monitor
[2017-07-26] MEDS ORDERED: cloNIDine HCL 0.1 MG TABLET PO ONE (22:00)
[2017-07-26] MEDS: THIAMINE HCL 100 MG TABLET (FP) PO SCH (22:51)
--- NOTE | 2017-07-26 23:28 | EKG ---
Test Reason : Blood Pressure : / mmHG Vent. Rate : 075 BPM Atrial Rate : 075 BPM P-R Int : 190 ms QRS Dur : 074 ms QT Int : 390 ms P-R-T Axes : 048 087 058 degrees QTc Int : 435 ms NORMAL SINUS RHYTHM NORMAL ECG WHEN COMPARED WITH ECG OF 27-OCT-2016 06:58, NO SIGNIFICANT CHANGE WAS FOUND Confirmed by JOYCE SCHWARTZ MD ([id number]) on 07/26/2017 11:28:36 PM Referred By: Dmitri Espinoza Confirmed By:JOYCE SCHWARTZ MD
[2017-07-27] MEDS ORDERED: METHADONE HCL 5 MG TABLET (FOR DETOX USE ONLY) PO ONE (10:00)
[2017-07-27] MEDS: NICOTINE 14 MG/24 HOURS TOPICAL PATCH TD SCH (10:25)
[2017-07-27] MEDS: PRENATAL VITAMINS W/ FOLIC ACID TABLET (FP) PO SCH (10:25)
[2017-07-27] MEDS: diazePAM 5 MG TABLET PO PRN (10:27)
--- NOTE | 2017-07-27 11:12 | PN ---
BHS COWS - Scale Resting Pulse: 0= [place] 80 or Below Sweatin= Chills/Flushing Restless Observation: 1= Difficult to Sit Still Pupil Size: 1= Pupils >than Normal Bone or Joint Aches: 2= Severe Diffuse Aches Runny Nose/ Eye Tearin= Nasal Congestion GI Upset > 30mins: 2= Nausea/Diarrhea Tremor Observation of Outstretched Hands: 2= Slight Tremor Visible Yawning Observation: 1= 1-2x During Session Anxiety or Irritability: 2=Irritable/Anxious Goose Flesh Skin: 0=Smooth Skin COWS Score: 13 BHS Progress Note (SOAP) Subjective: sweat joint aches running nose restlessness irritable Objective: 07/27/17 11:14 Vital Signs Temperature 98.3 F 07/27/17 10:35 Pulse Rate 76 07/27/17 10:35 Respiratory Rate 18 07/27/17 10:35 Blood Pressure 114/72 07/27/17 10:35 O2 Sat by Pulse Oximetry (%) Laboratory Last Values WBC 4.2 K/mm3 (4.0-10.0) 07/26/17 08:10 RBC 4.21 M/mm3 (3.60-5.2) 07/26/17 08:10 Hgb 11.2 GM/dL (10.7-15.3) D 07/26/17 08:10 Hct 34.0 % (32.4-45.2) 07/26/17 08:10 MCV 80.8 fl (80-96) 07/26/17 08:10 MCH 26.6 pg (25.7-33.7) 07/26/17 08:10 MCHC 32.9 g/dl (32.0-36.0) 07/26/17 08:10 RDW 14.2 % (11.6-15.6) 07/26/17 08:10 Plt Count 168 K/MM3 (134-434) 07/26/17 08:10 MPV 9.6 fl (7.5-11.1) 07/26/17 08:10 Sodium 142 mmol/L (136-145) 07/26/17 08:10 Potassium 3.5 mmol/L (3.5-5.1) 07/26/17 08:10 Chloride 108 mmol/L (98-107) H 07/26/17 08:10 Carbon Dioxide 27 mmol/L (21-32) 07/26/17 08:10 Anion Gap 7 (8-16) L 07/26/17 08:10 BUN 6 mg/dL (7-18) L 07/26/17 08:10 Creatinine 0.7 mg/dL (0.55-1.02) 07/26/17 08:10 Creat Clearance w eGFR > 60 (>60) 07/26/17 08:10 Random Glucose 81 mg/dL (74-106) 07/26/17 08:10 Calcium 8.1 mg/dL (8.5-10.1) L 07/26/17 08:10 Total Bilirubin 0.2 mg/dL (0.2-1.0) D 07/26/17 08:10 AST 23 U/L (15-37) 07/26/17 08:10 ALT 29 U/L (12-78) 07/26/17 08:10 Alkaline Phosphatase 65 U/L (45-117) 07/26/17 08:10 Total Protein 6.7 g/dl (6.4-8.2) 07/26/17 08:10 Albumin 3.3 g/dl (3.4-5.0) L 07/26/17 08:10 Urine Color Yellow 07/25/17 23:25 Urine Appearance Turbid 07/25/17 23:25 Urine pH 5.0 (5.0-8.0) 07/25/17 23:25 Ur Specific [place] 1.023 (1.001-1.035) 07/25/17 23:25 Urine Protein 1+ (NEGATIVE) H 07/25/17 23:25 Urine Glucose (UA) Negative (NEGATIVE) 07/25/17 23:25 Urine Ketones Negative (NEGATIVE) 07/25/17 23:25 Urine Blood 3+ (NEGATIVE) H 07/25/17 23:25 Urine Nitrite Negative (NEGATIVE) 07/25/17 23:25 Urine Bilirubin Negative (NEGATIVE) 07/25/17 23:25 Urine Urobilinogen Negative mg/dL (0.2-1.0) 07/25/17 23:25 Ur Leukocyte Esterase Trace (NEGATIVE) 07/25/17 23:25 Urine WBC (Auto) 159 /hpf (3-5) 07/25/17 23:25 Urine RBC (Auto) 152 /hpf (0-3) 07/25/17 23:25 Urine Mucus Few 07/25/17 23:25 Urine Yeast Many 07/25/17 23:25 RPR Titer Nonreactive (NONREACTIVE) 07/26/17 08:10 Hepatitis C Antibody 0.2 s/co ratio (0.0-0.9) 07/26/17 08:10 07/27/17 11:17 repeat ua Assessment: 07/27/17 11:18 withdrawal sx Plan: continue detox
[2017-07-27 13:23] VITALS: BP 121/80; PULSE 68; TEMP 99.3
--- NOTE | 2017-07-27 14:56 | PN ---
[facility] Progress Note Note: patient did not want to complete treatment,seen by counselor,signed release ama, encourage patient to stay with no avail
--- NOTE | 2017-07-27 14:59 | DS ---
[facility] Detox Discharge Summary Admission Date: 07/25/17 Discharge Date: 07/27/17 - History Present History: Cannabis Dependence, Opioid Dependence Additional Comments: patient did not want to complete treatment,seen by counselor,signed release ama, encourage patient to stay with no avail Pertinent Past History: nicotine dependence - Physical Exam Results Vital Signs: Vital Signs Temperature 99.3 F 07/27/17 13:23 Pulse Rate 68 07/27/17 13:23 Respiratory Rate 18 07/27/17 13:23 Blood Pressure 121/80 07/27/17 13:23 O2 Sat by Pulse Oximetry (%) Pertinent Admission Physical Exam Findings: withdrawal signs and symptom - Medication Discharge Medications: Ambulatory Orders Quetiapine Fumarate [Seroquel] 100 tab PO DAILY 07/25/17 Quetiapine Fumarate [Seroquel] 300 mg PO HS 07/25/17 - Diagnosis (1) Opioid dependence with withdrawal Current Visit: Yes Status: Acute (2) Cannabis dependence Current Visit: Yes Status: Chronic (3) Nicotine dependence Current Visit: Yes Status: Chronic Qualifiers: Nicotine product type: cigarettes Substance use status: in withdrawal Qualified Code(s): F17.213 - Nicotine dependence, cigarettes, with withdrawal (4) Substance induced mood disorder Current Visit: Yes Status: Suspected (5) Bipolar disorder Current Visit: No Status: Chronic - AMA Did Patient Leave Against Medical Advice: Yes
[2017-07-28] MEDS ORDERED: METHADONE HCL 5 MG TABLET (FOR DETOX USE ONLY) PO ONE (10:00)
[2017-07-29] MEDS ORDERED: METHADONE HCL 10 MG TABLET (FOR DETOX USE ONLY) PO ONE (10:00)
[2017-07-30] MEDS ORDERED: METHADONE HCL 5 MG TABLET (FOR DETOX USE ONLY) PO ONE (06:00)
== END 2017-07-27 15:11 | disposition left against medical advice (07) | DRG 770 ==
LOC: YASAS 19:32 → Y6N 21:28
PROVIDERS: ADMIT Internal Medicine; ATTEND Internal Medicine
PROC: HZ2ZZZZ Detoxification Services for Substance Abuse Treatment (ICD-10-PCS; principal; 2017-07-25)
DX: F11.23 Opioid dependence with withdrawal (principal); F12.20 Cannabis dependence, uncomplicated; F17.213 Nicotine dependence, cigarettes, with withdrawal; F31.9 Bipolar disorder, unspecified; F43.10 Post-traumatic stress disorder, unspecified; G47.00 Insomnia, unspecified; F19.24 Other psychoactive substance dependence with psychoactive substance-induced mood disorder
CPT/HCPCS: 36415; 80053; 81003; 81015; 85027; 86593; 86803; 93005; 93010; J0735

== ENCOUNTER 2017-11-19 12:26 | Inpatient (IN) | payer OTHER ==
[2017-11-19 13:29] VITALS: BMI 26.0
--- NOTE | 2017-11-19 17:31 | HP ---
COWS - Scale Resting Pulse: 1= [place] 81-100 Sweatin= Chills/Flushing Restless Observation: 1= Difficult to Sit Still Pupil Size: 1= Pupils >than Normal Bone or Joint Aches: 2= Severe Diffuse Aches Runny Nose/ Eye Tearin= Runny Nose/Eyes GI Upset > 30mins: 3= Vomiting/Diarrhea Tremor Observation: 0= None Yawning Observation: 1= 1-2x During Session Anxiety or Irritability: 2=Irritable/Anxious Goose Flesh Skin: 0=Smooth Skin COWS Score: 14 Admission [facility] Chief Complaint: Heroin withdrawal symptoms. Allergies/Adverse Reactions: Allergies Allergy/AdvReac Type Severity Reaction Status Date / Time strawberry Allergy Severe Swelling Verified 11/19/17 15:53 No Known Drug Allergies Allergy Verified 11/19/17 15:53 History of Present Illness: Patient present with heroin withdrawal symptoms. Patient started injecting heroin at age 16. Uses 8-9 bags daily. Last time used was this morning. Patient also buys non-prescribed xanax and takes 5mg daily. Last time taken was 3 days ago. States she buys it when she can but does not take medication daily. Patient does report smoking Marijuana up to 3 bags daily since age 12. Overdosed 10 times, last time 8 months ago. Denies snorting cocaine. States cocaine may be mixed with heroin. PMH includes anxiety and depression. Denies SI /HI and suicide attempts. - Ebola screening Have you traveled outside of the country in the last 21 days: No Have you had contact with anyone from an Ebola affected area: No Have you been sick,other than usual withdrawal symptoms: No Do you have a fever: No - Review of Systems Constitutional: Chills, Changes in sleep, Unintentional Wgt. Loss EENT: reports: Tearing, Nose Congestion Respiratory: reports: No Symptoms reported Cardiac: reports: No Symptoms Reported GI: reports: Diarrhea, Nausea, Poor Fluid Intake, Vomiting, Abdominal cramping : reports: No Symptoms Reported Musculoskeletal: reports: Back Pain, Joint Pain, Muscle Pain Integumentary: reports: Sweating Neuro: reports: Headache, Tremors Endocrine: reports: Unexplained Weight Loss Hematology: reports: No Symptoms Reported Psychiatric: reports: Anxious, Depressed, Disorientated (unsure of date) Patient History - Patient Medical History Hx Anemia: Yes (HX/O) Hx Asthma: No Hx Chronic Obstructive Pulmonary Disease (COPD): No Hx Cancer: No Hx Cardiac Disorders: No Hx Congestive Heart Failure: No Hx Hypertension: No Hx Hypercholesterolemia: No Hx Pacemaker: No HX Cerebrovascular Accident: No Hx Seizures: No Hx Dementia: No Hx Diabetes: No Hx Gastrointestinal Disorders: No Hx Liver Disease: No Hx Genitourinary Disorders: No Hx Sexually Transmitted Disorders: No Hx Renal Disease (ESRD): No Hx Thyroid Disease: No Hx Human Immunodeficiency Virus (HIV): No Hx Hepatitis C: No Hx Depression: Yes Hx Suicide Attempt: No Hx Bipolar Disorder: Yes Hx Schizophrenia: No - Patient Surgical History Past Surgical History: Yes Hx Neurologic Surgery: No Hx Cataract Extraction: No Hx Cardiac Surgery: No Hx Lung Surgery: No Hx Breast Surgery: No Hx Breast Biopsy: No Hx Abdominal Surgery: Yes (APPENDECTOMY AGE AGE OF 6 YEARS) Hx Appendectomy: No Hx Cholecystectomy: No Hx Genitourinary Surgery: No Hx Section: No Hx Orthopedic Surgery: Yes (LEFT LEG FX 2013 [facility]) Hx Hysterectomy: No Anesthesia Reaction: No - PPD History Previous Implant?: Yes Documented Results: Negative w/proof Implanted On Prior [facility] Admission?: Yes Date: 08/30/17 Results: 0 MM PPD to be Administered?: No - Reproductive History Last Menstrual Period: 11/02/17 Patient : No - Smoking Cessation Smoking history: Current every day smoker Have you smoked in the past 12 months: Yes Aproximately how many cigarettes per day: 5 Cigars Per Day: 0 Hx Chewing Tobacco Use: No Initiated information on smoking cessation: Yes 'Breaking Loose' booklet given: 11/19/17 - Substance & Tx. History Hx Alcohol Use: No Hx Substance Use: Yes Substance Use Type: Heroin, Marijuana - Substances Abused Heroin Route: Injection Frequency: Daily Amount used: 8-9 BAGS Age of first use: 16 Date of Last Use: 11/19/17 Marijuana/Hashish Route: Smoking Frequency: Daily Amount used: $30 Age of first use: 12 Date of Last Use: 11/18/17 Family Disease History - Family Disease History Family Disease History: Heart Disease: Grandparent (HTN), Mother (HTN), Other: Father (alcohol) Admission Physical Exam BHS - Vital Signs Vital Signs: Vital Signs - 24 hr 11/19/17 13:25 Temperature 96.3 F L Pulse Rate 90 Respiratory 20 Rate Blood Pressure 95/58 - Physical General Appearance: Yes: Appropriately Dressed, Disheveled, Tremorous, Sweating , Anxious HEENTM: Yes: EOMI, Hearing grossly Normal, Normocephalic, Normal Voice, BRUNO, Pharynx Normal, Nasal Congestion Respiratory: Yes: Chest Non-Tender, Lungs Clear, Normal Breath Sounds, No Respiratory Distress, No Accessory Muscle Use Neck: Yes: No masses,lesions,Nodules, Supple Breast: Yes: Breast Exam Deferred Cardiology: Yes: Regular Rhythm, Regular Rate, S1, S2 Abdominal: Yes: Normal Bowel Sounds, Non Tender, Soft Genitourinary: Yes: Within Normal Limits Back: Yes: Muscle Spasm Musculoskeletal: Yes: full range of Motion, Gait Steady, Back pain, Muscle Pain Extremities: Yes: Normal Inspection, Normal Range of Motion, Non-Tender, Tremors Neurological: Yes: saw straightener II-XII NML intact, Fully Oriented, Alert, Motor Strength 5/5, Disoriented (unsure of date), Depressed Affect Integumentary: Yes: Normal Color, Warm, Moist, Track Parikh Lymphatic: Yes: Within Normal Limits - Diagnostic (1) Cannabis dependence Current Visit: Yes Status: Chronic (2) Bipolar disorder Current Visit: Yes Status: Chronic Qualifiers: Active/Remission status: remission status unspecified Qualified Code(s): F31.9 - Bipolar disorder, unspecified Comment: Self reports. H/O medication nonadherence. Reports no medications in over 6 months and refusing to restart medication. (3) Cocaine dependence, uncomplicated Current Visit: Yes Status: Chronic (4) Nicotine dependence Current Visit: Yes Status: Chronic Qualifiers: Nicotine product type: cigarettes Substance use status: in withdrawal Qualified Code(s): F17.213 - Nicotine dependence, cigarettes, with withdrawal (5) Opioid dependence with withdrawal Current Visit: Yes Status: Chronic Cleared for Admission [facility] - Detox or Rehab [facility] Level of Care: Medically Managed Detox Regimen/Protocol: Methadone [facility] Breath Alcohol Content Breath Alcohol Content: 0 Urine Pregancy Test - Result Urine Test Results: Negative- NO Line Present Urine Drug Screen - Results Drug Screen Negative: No Urine Drug Screen Results: THC-Marijuana, KOLTON-Cocaine, OPI-Opiates, BZO- Benzodiazepines, MTD-Methadone, TCA-Tricyclic Antidepress, OXY-Oxycodone
[2017-11-19] MEDS ORDERED: guaiFENesin/D-METHORPHAN HB 10 ML UNIT-DOSE CUPS PO PRN (17:40)
[2017-11-19] MEDS ORDERED: MAG HYDROX/AL HYDROX/SIMETH 30 ML UNIT-DOSE CUP PO PRN (17:40)
[2017-11-19] MEDS ORDERED: MAGNESIUM CITRATE 300 ML BOTTLE PO PRN (17:40)
[2017-11-19] MEDS ORDERED: MENTHOL/PHENOL 1 EACH UD MM PRN (17:40)
[2017-11-19] MEDS ORDERED: IBUPROFEN 400 MG TABLET (FP) PO PRN (17:40)
[2017-11-19] MEDS ORDERED: P-EPHED 60MG/TRIPROLIDI 2.5MG TABLET PO PRN (17:40)
[2017-11-19] MEDS ORDERED: NICOTINE POLACRILEX 2 MG GUM BUC PRN (17:40)
[2017-11-19] MEDS ORDERED: hydrOXYzine PAMOATE 50 MG CAPSULE (FP) PO PRN (17:40)
[2017-11-19] MEDS ORDERED: MAGNESIUM HYDROX 2400MG/30ML ORAL SUSPENSION 30 ML CUP PO PRN (17:40)
[2017-11-19] MEDS ORDERED: LOPERAMIDE HCL 2 MG CAPSULE PO PRN (17:40)
[2017-11-19] MEDS ORDERED: ACETAMINOPHEN 325 MG TABLET (FP) PO PRN (17:40)
[2017-11-19] MEDS ORDERED: METHADONE HCL 10 MG TABLET (FOR DETOX USE ONLY) PO ONE ×2 (18:30→23:00)
[2017-11-19] MEDS: diazePAM 5 MG TABLET PO PRN (19:24)
[2017-11-19] MEDS ORDERED: MELATONIN 5 MG TABLETS PO PRN (22:00)
[2017-11-19] MEDS: THIAMINE HCL 100 MG TABLET (FP) PO SCH (22:22)
[2017-11-20] MEDS: diazePAM 5 MG TABLET PO PRN ×3 (05:50→22:29)
--- NOTE | 2017-11-20 09:23 | EKG ---
Test Reason : Blood Pressure : / mmHG Vent. Rate : 080 BPM Atrial Rate : 080 BPM P-R Int : 180 ms QRS Dur : 082 ms QT Int : 378 ms P-R-T Axes : 068 078 061 degrees QTc Int : 435 ms NORMAL SINUS RHYTHM NORMAL ECG WHEN COMPARED WITH ECG OF 28-AUG-2017 20:54, NO SIGNIFICANT CHANGE WAS FOUND Confirmed by NORMA BAIRD MD ([id number]) on 11/20/2017 9:22:49 AM Referred By: Confirmed By:NORMA BAIRD MD
[2017-11-20 09:53] LABS: HEMOGLOBIN 10.6 GM/dL (10.7-15.3); MCH 26.4 pg (25.7-33.7); MCHC 33.1 g/dl (32.0-36.0); MEAN CELL VOLUME 79.8 fl (80-96); PLATELET COUNT 201 K/MM3 (134-434); RBC 4.01 M/mm3 (3.60-5.2); RDW 13.6 % (11.6-15.6); WHITE BLOOD COUNT 4.9 K/mm3 (4.0-10.0)
[2017-11-20 09:58] LABS: URINE APPEARANCE TURBID; URINE BILIRUBIN NEGATIVE (<2.0 mg/dL); URINE COLOR YELLOW; URINE GLUCOSE (UA) NEGATIVE (NEGATIVE); URINE KETONE NEGATIVE (NEGATIVE); URINE NITRITE POSITIVE (NEGATIVE)
[2017-11-20] MEDS ORDERED: METHADONE HCL 10 MG TABLET (FOR DETOX USE ONLY) PO ONE (10:00)
[2017-11-20 10:11] LABS: URINE LEUK ESTERASE 1+ (NEGATIVE); URINE PROTEIN 1+ (NEGATIVE)
[2017-11-20 10:13] LABS: EPI CELLS MODERATE /HPF (FEW); URINE BACTERIA MANY /hpf (NONE SEEN); URINE MUCUS MANY
[2017-11-20] MEDS: PRENATAL VITAMINS W/ FOLIC ACID TABLET (FP) PO SCH (10:32)
[2017-11-20] MEDS: NICOTINE 21 MG/24 HOURS TOPICAL PATCH TD SCH (10:32)
[2017-11-20 10:42] LABS: CHLORIDE 102 mmol/L (98-107); POTASSIUM 3.7 mmol/L (3.5-5.1); SODIUM 138 mmol/L (136-145)
[2017-11-20 11:07] LABS: ALBUMIN 2.9 g/dl (3.4-5.0); ALK PHOS 63 U/L (45-117); ANION GAP 6 (8-16); BILIRUBIN,TOTAL 0.2 mg/dL (0.2-1.0); BLOOD UREA NITROGEN 6 mg/dL (7-18); CALCIUM 8.6 mg/dL (8.5-10.1); CO2 30 mmol/L (21-32); CREATININE 0.7 mg/dL (0.55-1.02); GLUCOSE,RANDOM 82 mg/dL (74-106); SGOT/AST 24 U/L (15-37); SGPT/ALT 23 U/L (12-78); TOT PROT 6.9 g/dl (6.4-8.2)
--- NOTE | 2017-11-20 17:49 | PN ---
BHS COWS - Scale Resting Pulse: 1= [place] 81-100 Sweatin=Flushed/Facial Moisture Restless Observation: 3= Extraneous Movement Pupil Size: 0= Normal to Room Light Bone or Joint Aches: 1= Mild Discomfort Runny Nose/ Eye Tearin= Nasal Congestion GI Upset > 30mins: 1= Stomach Cramp Tremor Observation of Outstretched Hands: 2= Slight Tremor Visible Yawning Observation: 0= None Anxiety or Irritability: 2=Irritable/Anxious Goose Flesh Skin: 0=Smooth Skin COWS Score: 13 BHS Progress Note (SOAP) Subjective: Sweats shakes diarrhea Objective: 11/20/17 17:46 A & o x 3 Ambulatory steadily on unit Vital Signs Temperature 98.1 F 11/20/17 14:24 Pulse Rate 81 11/20/17 14:24 Respiratory Rate 18 11/20/17 14:24 Blood Pressure 122/65 11/20/17 14:24 O2 Sat by Pulse Oximetry (%) Laboratory Last Values WBC 4.9 K/mm3 (4.0-10.0) 11/20/17 08:00 RBC 4.01 M/mm3 (3.60-5.2) 11/20/17 08:00 Hgb 10.6 GM/dL (10.7-15.3) L 11/20/17 08:00 Hct 32.0 % (32.4-45.2) L 11/20/17 08:00 MCV 79.8 fl (80-96) L 11/20/17 08:00 MCH 26.4 pg (25.7-33.7) 11/20/17 08:00 MCHC 33.1 g/dl (32.0-36.0) 11/20/17 08:00 RDW 13.6 % (11.6-15.6) 11/20/17 08:00 Plt Count 201 K/MM3 (134-434) 11/20/17 08:00 MPV 9.0 fl (7.5-11.1) 11/20/17 08:00 Sodium 138 mmol/L (136-145) 11/20/17 08:00 Potassium 3.7 mmol/L (3.5-5.1) 11/20/17 08:00 Chloride 102 mmol/L (98-107) 11/20/17 08:00 Carbon Dioxide 30 mmol/L (21-32) 11/20/17 08:00 Anion Gap 6 (8-16) L 11/20/17 08:00 BUN 6 mg/dL (7-18) L 11/20/17 08:00 Creatinine 0.7 mg/dL (0.55-1.02) 11/20/17 08:00 Creat Clearance w eGFR > 60 (>60) 11/20/17 08:00 Random Glucose 82 mg/dL (74-106) 11/20/17 08:00 Calcium 8.6 mg/dL (8.5-10.1) 11/20/17 08:00 Total Bilirubin 0.2 mg/dL (0.2-1.0) D 11/20/17 08:00 AST 24 U/L (15-37) 11/20/17 08:00 ALT 23 U/L (12-78) 11/20/17 08:00 Alkaline Phosphatase 63 U/L (45-117) 11/20/17 08:00 Total Protein 6.9 g/dl (6.4-8.2) 11/20/17 08:00 Albumin 2.9 g/dl (3.4-5.0) L 11/20/17 08:00 Urine Color Yellow 11/20/17 08:00 Urine Appearance Turbid 11/20/17 08:00 Urine pH 5.0 (5.0-8.0) 11/20/17 08:00 Ur Specific [place] 1.029 (1.001-1.035) 11/20/17 08:00 Urine Protein 1+ (NEGATIVE) H 11/20/17 08:00 Urine Glucose (UA) Negative (NEGATIVE) 11/20/17 08:00 Urine Ketones Negative (NEGATIVE) 11/20/17 08:00 Urine Blood Negative (NEGATIVE) 11/20/17 08:00 Urine Nitrite Positive (NEGATIVE) 11/20/17 08:00 Urine Bilirubin Negative (<2.0 mg/dL) 11/20/17 08:00 Urine Urobilinogen 2.0 mg/dL (0.2-1.0) H 11/20/17 08:00 Ur Leukocyte Esterase 1+ (NEGATIVE) H 11/20/17 08:00 Urine WBC (Auto) 167 /hpf (3-5) 11/20/17 08:00 Urine RBC (Auto) None /hpf (0-3) 11/20/17 08:00 Ur Epithelial Cells Moderate /HPF (FEW) 11/20/17 08:00 Urine Bacteria Many /hpf (NONE SEEN) 11/20/17 08:00 Urine Mucus Many 11/20/17 08:00 LAbs noted, abnormal urine result Assessment: 11/20/17 17:48 Withdrawal sx UTI Dehydration Plan: continue detox ciprofloxacin Increase hydration Urine culture
[2017-11-20] MEDS: CIPROFLOXACIN 250 MG TABLET (RESTRICTED TO ID) PO SCH (22:28)
[2017-11-20] MEDS: THIAMINE HCL 100 MG TABLET (FP) PO SCH (22:28)
[2017-11-21] MEDS ORDERED: METHADONE HCL 5 MG TABLET (FOR DETOX USE ONLY) PO ONE (10:00)
[2017-11-21] MEDS: diazePAM 5 MG TABLET PO PRN ×2 (10:29→18:36)
[2017-11-21] MEDS: NICOTINE 21 MG/24 HOURS TOPICAL PATCH TD SCH (10:29)
[2017-11-21] MEDS: CIPROFLOXACIN 250 MG TABLET (RESTRICTED TO ID) PO SCH ×2 (10:29→22:25)
[2017-11-21] MEDS: PRENATAL VITAMINS W/ FOLIC ACID TABLET (FP) PO SCH (10:29)
--- NOTE | 2017-11-21 11:12 | PN ---
BHS COWS - Scale Resting Pulse: 0= [place] 80 or Below Sweatin= Chills/Flushing Restless Observation: 1= Difficult to Sit Still Pupil Size: 1= Pupils >than Normal Bone or Joint Aches: 1= Mild Discomfort Runny Nose/ Eye Tearin= Nasal Congestion GI Upset > 30mins: 1= Stomach Cramp Tremor Observation of Outstretched Hands: 2= Slight Tremor Visible Yawning Observation: 2= >3x During Session Anxiety or Irritability: 2=Irritable/Anxious Goose Flesh Skin: 0=Smooth Skin COWS Score: 12 BHS Progress Note (SOAP) Subjective: JOINT PAIN BODY ACHE TREMOR SWEATING TROUBLE SLEEP AT NIGHT Objective: 11/21/17 11:14 Vital Signs Temperature 98.8 F 11/21/17 09:36 Pulse Rate 64 11/21/17 09:36 Respiratory Rate 18 11/21/17 09:36 Blood Pressure 114/78 11/21/17 09:36 O2 Sat by Pulse Oximetry (%) Laboratory Last Values WBC 4.9 K/mm3 (4.0-10.0) 11/20/17 08:00 RBC 4.01 M/mm3 (3.60-5.2) 11/20/17 08:00 Hgb 10.6 GM/dL (10.7-15.3) L 11/20/17 08:00 Hct 32.0 % (32.4-45.2) L 11/20/17 08:00 MCV 79.8 fl (80-96) L 11/20/17 08:00 MCH 26.4 pg (25.7-33.7) 11/20/17 08:00 MCHC 33.1 g/dl (32.0-36.0) 11/20/17 08:00 RDW 13.6 % (11.6-15.6) 11/20/17 08:00 Plt Count 201 K/MM3 (134-434) 11/20/17 08:00 MPV 9.0 fl (7.5-11.1) 11/20/17 08:00 Sodium 138 mmol/L (136-145) 11/20/17 08:00 Potassium 3.7 mmol/L (3.5-5.1) 11/20/17 08:00 Chloride 102 mmol/L (98-107) 11/20/17 08:00 Carbon Dioxide 30 mmol/L (21-32) 11/20/17 08:00 Anion Gap 6 (8-16) L 11/20/17 08:00 BUN 6 mg/dL (7-18) L 11/20/17 08:00 Creatinine 0.7 mg/dL (0.55-1.02) 11/20/17 08:00 Creat Clearance w eGFR > 60 (>60) 11/20/17 08:00 Random Glucose 82 mg/dL (74-106) 11/20/17 08:00 Calcium 8.6 mg/dL (8.5-10.1) 11/20/17 08:00 Total Bilirubin 0.2 mg/dL (0.2-1.0) D 11/20/17 08:00 AST 24 U/L (15-37) 11/20/17 08:00 ALT 23 U/L (12-78) 11/20/17 08:00 Alkaline Phosphatase 63 U/L (45-117) 11/20/17 08:00 Total Protein 6.9 g/dl (6.4-8.2) 11/20/17 08:00 Albumin 2.9 g/dl (3.4-5.0) L 11/20/17 08:00 Urine Color Yellow 11/20/17 08:00 Urine Appearance Turbid 11/20/17 08:00 Urine pH 5.0 (5.0-8.0) 11/20/17 08:00 Ur Specific [place] 1.029 (1.001-1.035) 11/20/17 08:00 Urine Protein 1+ (NEGATIVE) H 11/20/17 08:00 Urine Glucose (UA) Negative (NEGATIVE) 11/20/17 08:00 Urine Ketones Negative (NEGATIVE) 11/20/17 08:00 Urine Blood Negative (NEGATIVE) 11/20/17 08:00 Urine Nitrite Positive (NEGATIVE) 11/20/17 08:00 Urine Bilirubin Negative (<2.0 mg/dL) 11/20/17 08:00 Urine Urobilinogen 2.0 mg/dL (0.2-1.0) H 11/20/17 08:00 Ur Leukocyte Esterase 1+ (NEGATIVE) H 11/20/17 08:00 Urine WBC (Auto) 167 /hpf (3-5) 11/20/17 08:00 Urine RBC (Auto) None /hpf (0-3) 11/20/17 08:00 Ur Epithelial Cells Moderate /HPF (FEW) 11/20/17 08:00 Urine Bacteria Many /hpf (NONE SEEN) 11/20/17 08:00 Urine Mucus Many 11/20/17 08:00 RPR Titer Nonreactive (NONREACTIVE) 11/20/17 08:00 LAB NOTED UTI Assessment: 11/21/17 11:15 WITHDRAWAL SX UTI Plan: CONTINUE DETOX CONTINUE CIPRO INCREASE ORAL FLUID
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
[2017-11-21] MEDS: THIAMINE HCL 100 MG TABLET (FP) PO SCH (22:25)
[2017-11-21] MEDS: QUEtiapine FUMARATE 100 MG TABLET (FP) PO SCH (22:25)
[2017-11-22] MEDS ORDERED: METHADONE HCL 5 MG TABLET (FOR DETOX USE ONLY) PO ONE (10:00)
[2017-11-22] MEDS: diazePAM 5 MG TABLET PO PRN (10:49)
[2017-11-22] MEDS: CIPROFLOXACIN 250 MG TABLET (RESTRICTED TO ID) PO SCH ×2 (10:49→22:09)
[2017-11-22] MEDS: QUEtiapine FUMARATE 100 MG TABLET (FP) PO SCH ×2 (10:49→22:09)
[2017-11-22] MEDS: PRENATAL VITAMINS W/ FOLIC ACID TABLET (FP) PO SCH (10:49)
[2017-11-22] MEDS: NICOTINE 21 MG/24 HOURS TOPICAL PATCH TD SCH (10:49)
--- NOTE | 2017-11-22 14:18 | PN ---
[facility] Progress Note (SOAP) Subjective: joint pain body ache sweat tremor trouble sleep at night restlessness Objective: 11/22/17 14:17 Vital Signs Temperature 98 F 11/22/17 13:43 Pulse Rate 84 11/22/17 13:43 Respiratory Rate 16 11/22/17 13:43 Blood Pressure 104/51 11/22/17 13:43 O2 Sat by Pulse Oximetry (%) Laboratory Last Values WBC 4.9 K/mm3 (4.0-10.0) 11/20/17 08:00 RBC 4.01 M/mm3 (3.60-5.2) 11/20/17 08:00 Hgb 10.6 GM/dL (10.7-15.3) L 11/20/17 08:00 Hct 32.0 % (32.4-45.2) L 11/20/17 08:00 MCV 79.8 fl (80-96) L 11/20/17 08:00 MCH 26.4 pg (25.7-33.7) 11/20/17 08:00 MCHC 33.1 g/dl (32.0-36.0) 11/20/17 08:00 RDW 13.6 % (11.6-15.6) 11/20/17 08:00 Plt Count 201 K/MM3 (134-434) 11/20/17 08:00 MPV 9.0 fl (7.5-11.1) 11/20/17 08:00 Sodium 138 mmol/L (136-145) 11/20/17 08:00 Potassium 3.7 mmol/L (3.5-5.1) 11/20/17 08:00 Chloride 102 mmol/L (98-107) 11/20/17 08:00 Carbon Dioxide 30 mmol/L (21-32) 11/20/17 08:00 Anion Gap 6 (8-16) L 11/20/17 08:00 BUN 6 mg/dL (7-18) L 11/20/17 08:00 Creatinine 0.7 mg/dL (0.55-1.02) 11/20/17 08:00 Creat Clearance w eGFR > 60 (>60) 11/20/17 08:00 Random Glucose 82 mg/dL (74-106) 11/20/17 08:00 Calcium 8.6 mg/dL (8.5-10.1) 11/20/17 08:00 Total Bilirubin 0.2 mg/dL (0.2-1.0) D 11/20/17 08:00 AST 24 U/L (15-37) 11/20/17 08:00 ALT 23 U/L (12-78) 11/20/17 08:00 Alkaline Phosphatase 63 U/L (45-117) 11/20/17 08:00 Total Protein 6.9 g/dl (6.4-8.2) 11/20/17 08:00 Albumin 2.9 g/dl (3.4-5.0) L 11/20/17 08:00 Urine Color Yellow 11/20/17 08:00 Urine Appearance Turbid 11/20/17 08:00 Urine pH 5.0 (5.0-8.0) 11/20/17 08:00 Ur Specific [place] 1.029 (1.001-1.035) 11/20/17 08:00 Urine Protein 1+ (NEGATIVE) H 11/20/17 08:00 Urine Glucose (UA) Negative (NEGATIVE) 11/20/17 08:00 Urine Ketones Negative (NEGATIVE) 11/20/17 08:00 Urine Blood Negative (NEGATIVE) 11/20/17 08:00 Urine Nitrite Positive (NEGATIVE) 11/20/17 08:00 Urine Bilirubin Negative (<2.0 mg/dL) 11/20/17 08:00 Urine Urobilinogen 2.0 mg/dL (0.2-1.0) H 11/20/17 08:00 Ur Leukocyte Esterase 1+ (NEGATIVE) H 11/20/17 08:00 Urine WBC (Auto) 167 /hpf (3-5) 11/20/17 08:00 Urine RBC (Auto) None /hpf (0-3) 11/20/17 08:00 Ur Epithelial Cells Moderate /HPF (FEW) 11/20/17 08:00 Urine Bacteria Many /hpf (NONE SEEN) 11/20/17 08:00 Urine Mucus Many 11/20/17 08:00 RPR Titer Nonreactive (NONREACTIVE) 11/20/17 08:00 lab noted uti Assessment: 11/22/17 14:18 withdrawal sx Plan: continue detox continue cipro
[2017-11-22] MEDS: THIAMINE HCL 100 MG TABLET (FP) PO SCH (22:09)
[2017-11-23] MEDS ORDERED: METHADONE HCL 10 MG TABLET (FOR DETOX USE ONLY) PO ONE (10:00)
[2017-11-23] MEDS: PRENATAL VITAMINS W/ FOLIC ACID TABLET (FP) PO SCH (10:07)
[2017-11-23] MEDS: NICOTINE 21 MG/24 HOURS TOPICAL PATCH TD SCH (10:08)
[2017-11-23] MEDS: CIPROFLOXACIN 250 MG TABLET (RESTRICTED TO ID) PO SCH ×2 (10:08→22:03)
[2017-11-23] MEDS: QUEtiapine FUMARATE 100 MG TABLET (FP) PO SCH ×2 (10:09→22:03)
--- NOTE | 2017-11-23 10:12 | PN ---
[facility] Progress Note (SOAP) Subjective: feeling better no tremor no body ache less sweat sleep better at night stated not taking prescribed medication at home Objective: 11/23/17 10:12 Vital Signs Temperature 97.7 F 11/23/17 09:05 Pulse Rate 72 11/23/17 09:05 Respiratory Rate 18 11/23/17 09:05 Blood Pressure 121/73 11/23/17 09:05 O2 Sat by Pulse Oximetry (%) Laboratory Last Values WBC 4.9 K/mm3 (4.0-10.0) 11/20/17 08:00 RBC 4.01 M/mm3 (3.60-5.2) 11/20/17 08:00 Hgb 10.6 GM/dL (10.7-15.3) L 11/20/17 08:00 Hct 32.0 % (32.4-45.2) L 11/20/17 08:00 MCV 79.8 fl (80-96) L 11/20/17 08:00 MCH 26.4 pg (25.7-33.7) 11/20/17 08:00 MCHC 33.1 g/dl (32.0-36.0) 11/20/17 08:00 RDW 13.6 % (11.6-15.6) 11/20/17 08:00 Plt Count 201 K/MM3 (134-434) 11/20/17 08:00 MPV 9.0 fl (7.5-11.1) 11/20/17 08:00 Sodium 138 mmol/L (136-145) 11/20/17 08:00 Potassium 3.7 mmol/L (3.5-5.1) 11/20/17 08:00 Chloride 102 mmol/L (98-107) 11/20/17 08:00 Carbon Dioxide 30 mmol/L (21-32) 11/20/17 08:00 Anion Gap 6 (8-16) L 11/20/17 08:00 BUN 6 mg/dL (7-18) L 11/20/17 08:00 Creatinine 0.7 mg/dL (0.55-1.02) 11/20/17 08:00 Creat Clearance w eGFR > 60 (>60) 11/20/17 08:00 Random Glucose 82 mg/dL (74-106) 11/20/17 08:00 Calcium 8.6 mg/dL (8.5-10.1) 11/20/17 08:00 Total Bilirubin 0.2 mg/dL (0.2-1.0) D 11/20/17 08:00 AST 24 U/L (15-37) 11/20/17 08:00 ALT 23 U/L (12-78) 11/20/17 08:00 Alkaline Phosphatase 63 U/L (45-117) 11/20/17 08:00 Total Protein 6.9 g/dl (6.4-8.2) 11/20/17 08:00 Albumin 2.9 g/dl (3.4-5.0) L 11/20/17 08:00 Urine Color Yellow 11/20/17 08:00 Urine Appearance Turbid 11/20/17 08:00 Urine pH 5.0 (5.0-8.0) 11/20/17 08:00 Ur Specific [place] 1.029 (1.001-1.035) 11/20/17 08:00 Urine Protein 1+ (NEGATIVE) H 11/20/17 08:00 Urine Glucose (UA) Negative (NEGATIVE) 11/20/17 08:00 Urine Ketones Negative (NEGATIVE) 11/20/17 08:00 Urine Blood Negative (NEGATIVE) 11/20/17 08:00 Urine Nitrite Positive (NEGATIVE) 11/20/17 08:00 Urine Bilirubin Negative (<2.0 mg/dL) 11/20/17 08:00 Urine Urobilinogen 2.0 mg/dL (0.2-1.0) H 11/20/17 08:00 Ur Leukocyte Esterase 1+ (NEGATIVE) H 11/20/17 08:00 Urine WBC (Auto) 167 /hpf (3-5) 11/20/17 08:00 Urine RBC (Auto) None /hpf (0-3) 11/20/17 08:00 Ur Epithelial Cells Moderate /HPF (FEW) 11/20/17 08:00 Urine Bacteria Many /hpf (NONE SEEN) 11/20/17 08:00 Urine Mucus Many 11/20/17 08:00 RPR Titer Nonreactive (NONREACTIVE) 11/20/17 08:00 continue cipro lab noted 11/23/17 10:19 Assessment: 11/23/17 10:19 mild withdrawal sx Plan: medically supervised detox personal hygiene increase oral fluid
[2017-11-23] MEDS: THIAMINE HCL 100 MG TABLET (FP) PO SCH (22:03)
[2017-11-24] MEDS ORDERED: METHADONE HCL 5 MG TABLET (FOR DETOX USE ONLY) PO ONE (06:00)
--- NOTE | 2017-11-24 08:49 | PN ---
[facility] Progress Note (SOAP) Subjective: feeling better Objective: 11/24/17 08:47 Vital Signs Temperature 97.9 F 11/24/17 06:00 Pulse Rate 84 11/24/17 06:00 Respiratory Rate 18 11/24/17 06:00 Blood Pressure 108/65 11/24/17 06:00 O2 Sat by Pulse Oximetry (%) Laboratory Tests 11/20/17 11/20/17 11/20/17 08:00 08:00 08:00 WBC 4.9 RBC 4.01 Hgb 10.6 L Hct 32.0 L MCV 79.8 L MCH 26.4 MCHC 33.1 RDW 13.6 Plt Count 201 MPV 9.0 Sodium 138 Potassium 3.7 Chloride 102 Carbon Dioxide 30 Anion Gap 6 L BUN 6 L Creatinine 0.7 Creat Clearance w eGFR > 60 Random Glucose 82 Calcium 8.6 Total Bilirubin 0.2 D AST 24 ALT 23 Alkaline Phosphatase 63 Total Protein 6.9 Albumin 2.9 L Urine Color Urine Appearance Urine pH Ur Specific [place] Urine Protein Urine Glucose (UA) Urine Ketones Urine Blood Urine Nitrite Urine Bilirubin Urine Urobilinogen Ur Leukocyte Esterase Urine WBC (Auto) Urine RBC (Auto) Ur Epithelial Cells Urine Bacteria Urine Mucus RPR Titer Nonreactive 11/20/17 08:00 WBC RBC Hgb Hct MCV MCH MCHC RDW Plt Count MPV Sodium Potassium Chloride Carbon Dioxide Anion Gap BUN Creatinine Creat Clearance w eGFR Random Glucose Calcium Total Bilirubin AST ALT Alkaline Phosphatase Total Protein Albumin Urine Color Yellow Urine Appearance Turbid Urine pH 5.0 Ur Specific [place] 1.029 Urine Protein 1+ H Urine Glucose (UA) Negative Urine Ketones Negative Urine Blood Negative Urine Nitrite Positive Urine Bilirubin Negative Urine Urobilinogen 2.0 H Ur Leukocyte Esterase 1+ H Urine WBC (Auto) 167 Urine RBC (Auto) None Ur Epithelial Cells Moderate Urine Bacteria Many Urine Mucus Many RPR Titer pt aox3 in nad ambulating Assessment: 11/24/17 08:48 withdrawal sx's improved detox completed Plan: d/c today
--- NOTE | 2017-11-24 08:51 | DS ---
[facility] Detox Discharge Summary Admission Date: 11/19/17 Discharge Date: 11/24/17 - History Present History: Alcohol Dependence, Cannabis Dependence, Opioid Dependence - Physical Exam Results Vital Signs: Vital Signs Temperature 97.9 F 11/24/17 06:00 Pulse Rate 84 11/24/17 06:00 Respiratory Rate 18 11/24/17 06:00 Blood Pressure 108/65 11/24/17 06:00 O2 Sat by Pulse Oximetry (%) - Treatment Hospital Course: Detox Protocol Followed, Detoxed Safely, Responded well, Discharged Condition Good - Medication Discharge Medications: Ambulatory Orders NK [No Known Home Medication] 10/29/17 - Diagnosis (1) Post traumatic stress disorder Current Visit: Yes Status: Chronic (2) Bipolar disorder Current Visit: Yes Status: Chronic Qualifiers: Active/Remission status: remission status unspecified Qualified Code(s): F31.9 - Bipolar disorder, unspecified (3) Cannabis dependence Current Visit: Yes Status: Chronic (4) Cocaine dependence, uncomplicated Current Visit: Yes Status: Chronic (5) Nicotine dependence Current Visit: Yes Status: Chronic Qualifiers: Nicotine product type: cigarettes Substance use status: in withdrawal Qualified Code(s): F17.213 - Nicotine dependence, cigarettes, with withdrawal (6) Opioid dependence with withdrawal Current Visit: Yes Status: Chronic - AMA Did Patient Leave Against Medical Advice: No
[2017-11-24 09:12] VITALS: BP 134/94; PULSE 85; TEMP 97.7
== END 2017-11-24 08:35 | disposition home or self-care (01) | DRG 773 ==
LOC: YASAS 12:26 → Y6N 17:31
PROVIDERS: ADMIT Family Medicine Addiction Medicine; ATTEND Family Medicine Addiction Medicine
PROC: HZ2ZZZZ Detoxification Services for Substance Abuse Treatment (ICD-10-PCS; principal; 2017-11-19)
DX: F11.23 Opioid dependence with withdrawal (principal); F14.20 Cocaine dependence, uncomplicated; F12.20 Cannabis dependence, uncomplicated; F17.213 Nicotine dependence, cigarettes, with withdrawal; F31.9 Bipolar disorder, unspecified; F43.10 Post-traumatic stress disorder, unspecified; F32.4 Major depressive disorder, single episode, in partial remission; Z86.2 Personal history of diseases of the blood and blood-forming organs and certain disorders involving the immune mechanism
CPT/HCPCS: 36415; 80053; 81003; 81015; 85027; 86593; 93005; 93010

== ENCOUNTER 2018-12-09 08:55 | Inpatient (IN) | payer OTHER ==
[2018-12-09] MEDS ORDERED: LIDOCAINE HCL 1% PRESERVATIVE FREE - 30ML VIAL ONE (09:05)
[2018-12-09] MEDS ORDERED: OXYTOCIN 20 UNITS in 0.9% NS 20 UNIT/1,000 ML INFUS.BAG IV ONE (09:05)
--- NOTE | 2018-12-09 09:25 | PN ---
Delivery - Delivery Vaginal Delivery: Spontaneous Type of Anesthesia: None Episiotomy/Laceration: None EBL (cc): 200 Delivery, Single - Stages of Labor Placenta: Yes: Spontaneous - Condition of Infant Student Recruiter/Renewable Energy Engineer Present: Yes Gender: Female Position: Left, OA - 1 Minute Total Score: 8 5 Minutes Total Score: 8 Remarks - Remarks Remarks: of VFI from KAY position over perineum. Nuchal x 1. No meconium. Spontaneous delivery of anterior shoulder. Cord clumped and cut. handed off to NICU staff. Spontaneous delivery of intact placenta with 3VC. Fundus firm. Perineum inspected, no lacerations. EBL 200. Mother and baby doing well. Jessica Amaro MD
[2018-12-09] MEDS ORDERED: BENZOCAINE 20% 57 GM BOTTLE TP PRN (09:26)
[2018-12-09] MEDS ORDERED: METHYLERGONOVINE MALEATE 0.2 MG/1 ML AMP IM PRN (09:26)
[2018-12-09] MEDS ORDERED: WITCH HAZEL 50% (TUCKS) 40 PAD/JAR PAD TP PRN (09:26)
[2018-12-09] MEDS ORDERED: ACETAMINOPHEN 325 MG TABLET (FP) PO PRN (09:26)
[2018-12-09] MEDS ORDERED: IBUPROFEN 600 MG TABLET (FP) PO PRN (09:26)
[2018-12-09] MEDS ORDERED: BISACODYL 10 MG SUPP.RECT RC PRN (09:26)
[2018-12-09] MEDS ORDERED: BENZOCAINE 28 GM HEMORRHOIDAL OINTMENT TP PRN (09:26)
[2018-12-09] MEDS ORDERED: OXYTOCIN 20 UNITS in 0.9% NS 20 UNIT/1,000 ML INFUS.BAG IV SCH (09:30)
--- NOTE | 2018-12-09 09:37 | HP ---
Past Medical History - Admission Chief Complaint: Uterine contractions History of Present Illness: 23yo @ 36.wks BIBA for uterine contractions. +LOF. Recently discharged at 2cm, patient presented to Methadone clinic. Preg c/b: substance abuse including heroine, cocaine and marijuana (all recently , positive Utox today), positive chlamydia, late entry to care at 35 weeks History Source: Patient Limitations to Obtaining History: No Limitations - Past Medical History CRO: No: Alzheimer's, CVA, Dementia, Migraine, Multiple Sclerosis, Peripheral Neuropathy, Parkinson's, Seizure, Syncope, TIA, Vertigo, Other Cardiovascular: No: AFIB, Aneurysm, Aortic Insufficiency, Aortic Stenosis, CAD, CHF, Deep Vein Thrombosis, HTN, Hyperlipdemia, UT, Mitral Insufficiency, Mitral Stenosis, Murmur, Pulmonary Hypertension, Other Pulmonary: No: Asthma, Bronchitis, Cancer, COPD, O2 Dependent, Pneumonia, Previously Intubated, Pulmonary Embolus, Pulmonary Fibrosis, Sleep Apnea, Other Gastrointestinal: No: Ascites, Cancer, Constipation, Crohn's Disease, Diverticulitis, Diverticulosis, Esophageal Varices, Gastritis, GERD, GI Bleed, Hemorrhoids, Hiatal Hernia, Inflamatory Bowel Disease, Irritable Bowel Disease, Pancreatitis, Peptic Ulcer Disease, Ulcerative Colitis, Other Renal/: No: Renal Failure, Renal Inusuff, BPH, Cancer, Hematuria, Hemodialysis , Neurogenic Bladder, Renal Calculi, UTI, Other Reproductive: Yes: Other (STDs) ...: 1 Heme/Onc: Yes: Anemia Psych: Yes: Addictions - Past Surgical History Past Surgical History: Yes: None Hx Myomectomy: No Hx Transabdominal Cerclage: No - Smoking History Smoking history: Current every day smoker Have you smoked in the past 12 months: Yes Aproximately how many cigarettes per day: 2 - Alcohol/Substance Use Hx Alcohol Use: No History of Substance Use: reports: Cocaine, Heroin, Marijuana - Social History Usual Living Arrangement: Yes: Other (With "a friend") ADL: Independent History of Recent Travel: No Home Medications - Allergies Allergies/Adverse Reactions: Allergies Allergy/AdvReac Type Severity Reaction Status Date / Time strawberry Allergy Severe Swelling Verified 12/26/17 13:22 No Known Drug Allergies Allergy Verified 12/26/17 13:22 - Home Medications Home Medications: Ambulatory Orders Ferrous Sulfate [Iron] 325 mg PO DAILY 12/09/18 Methadone (Detox) [Dolophine -] 90 mg PO DAILY 12/09/18 Pnv No.95/Ferrous Fum/Folic AC [ Formula] 1 each PO DAILY 12/09/18 Family Disease History - Family Disease History Family Disease History: Heart Disease: Grandparent (HTN), Mother (HTN), Other: Father (alcohol) Physical Exam - Maternity Constitutional: Yes: Moderate Distress Eyes: Yes: WNL, Conjunctiva Clear, EOM Intact - Abdominal Exam/OB Number of Fetuses: Single Presentation: Vertex Contractions: Yes Regularity: Regular Intensity: Strong Monitor Mode: External Category: I Accelerations: Non-Uniform Decelerations: None - Vaginal Exam/OB Vaginal Bleediing: Bloody Show Speculum Exam: No Dilatation (cm): 10 Effacement (%): 100 Amniotic Membrane Status: Ruptured Amniotic Fluid: Yes: Blood Stained Presentation: Vertex/Position Station: 0 - Physical Exam Edema: No Assessment/Plan 23yo @ 36.2wks by sono here in labor, imminent delivery Admit to L&D IVFs, IM pitocin Labs Cat I tracing NICU for delivery Anticipate YUN Amaro MD
[2018-12-09] MEDS ORDERED: OXYTOCIN 10 UNITS/ML VIAL IM ONE ×2 (09:39→11:03)
[2018-12-09 10:49] LABS: HEMATOCRIT 34.9 % (32.4-45.2); HEMOGLOBIN 11.7 GM/dL (10.7-15.3); LYMPH % 7.1 % (8-40); MCHC 33.4 g/dl (32.0-36.0); MEAN CELL VOLUME 80.7 fl (80-96); MEAN PLT VOLUME 10.2 fl (7.5-11.1); MONO % 2.1 % (3.8-10.2); NEUT % 90.8 % (42.8-82.8); PLATELET COUNT 163 K/MM3 (134-434); RBC 4.32 M/mm3 (3.60-5.2); RDW 13.2 % (11.6-15.6); WHITE BLOOD COUNT 11.7 K/mm3 (4.0-10.0)
[2018-12-09 10:50] LABS: INR 0.93 (0.83-1.09)
[2018-12-09 10:51] VITALS: BMI 26.4
[2018-12-09 10:53] LABS: ACTIVATED PTT 28.4 SECONDS (25.2-36.5); BLOOD UREA NITROGEN 8.4 mg/dL (7-18); POTASSIUM 3.6 mmol/L (3.5-5.1)
[2018-12-09] MEDS: PRENATAL VITAMINS W/ FOLIC ACID TABLET (FP) PO SCH (12:00)
[2018-12-09] MEDS ORDERED: RANITIDINE HCL 150 MG TABLET (FP) PO PRN (12:41)
[2018-12-10] MEDS: METHADONE 10 MG, METHADONE 80 MG PO SCH (05:52)
[2018-12-10] MEDS ORDERED: METHADONE HCL 10 MG TABLET PO SCH (06:00)
[2018-12-10 07:37] LABS: BASO % 0.1 % (0-2.0); EOS % 0.4 % (0-4.5); HEMATOCRIT 31.9 % (32.4-45.2); HEMOGLOBIN 10.5 GM/dL (10.7-15.3); LYMPH % 23.6 % (8-40); MCHC 32.9 g/dl (32.0-36.0); MEAN CELL VOLUME 81.9 fl (80-96); MEAN PLT VOLUME 10.1 fl (7.5-11.1); MONO % 8.7 % (3.8-10.2); NEUT % 67.2 % (42.8-82.8); RDW 13.2 % (11.6-15.6); WHITE BLOOD COUNT 11.2 K/mm3 (4.0-10.0)
[2018-12-10 08:34] LABS: PLATELET COUNT 169 K/MM3 (134-434)
--- NOTE | 2018-12-10 09:01 | PN ---
Post Progress Note Post Day: 1 Type of Delivery: Vital Signs: Vital Signs Temperature 97.8 F 12/10/18 08:09 Pulse Rate 56 L 12/10/18 08:09 Respiratory Rate 18 12/10/18 08:09 Blood Pressure 133/72 12/10/18 08:09 O2 Sat by Pulse Oximetry (%) Uterus: Yes: Fundus below umbilicus Incision: Yes: Dressing dry and intact Abdomen/GI: Yes: Abdomen soft, Tolerating PO Lochia: Yes: Rubra Lochia, amount: Small Extremities: Yes: Calves non-tender Perineum: Yes: Intact Activity: Ambulating - Labs Labs: CBC WBC 11.2 K/mm3 (4.0-10.0) H 12/10/18 06:15 RBC 3.90 M/mm3 (3.60-5.2) 12/10/18 06:15 Hgb 10.5 GM/dL (10.7-15.3) L 12/10/18 06:15 Hct 31.9 % (32.4-45.2) L 12/10/18 06:15 MCV 81.9 fl (80-96) 12/10/18 06:15 MCH 27.0 pg (25.7-33.7) 12/10/18 06:15 MCHC 32.9 g/dl (32.0-36.0) 12/10/18 06:15 RDW 13.2 % (11.6-15.6) 12/10/18 06:15 Plt Count 169 K/MM3 (134-434) 12/10/18 06:15 MPV 10.1 fl (7.5-11.1) 12/10/18 06:15 Absolute Neuts (auto) 7.6 K/mm3 (1.5-8.0) 12/10/18 06:15 Neutrophils % 67.2 % (42.8-82.8) D 12/10/18 06:15 Lymphocytes % 23.6 % (8-40) D 12/10/18 06:15 Monocytes % 8.7 % (3.8-10.2) D 12/10/18 06:15 Eosinophils % 0.4 % (0-4.5) D 12/10/18 06:15 Basophils % 0.1 % (0-2.0) D 12/10/18 06:15 Nucleated RBC % 0 % (0-0) 12/10/18 06:15 Assessment/Plan 23yo s/p , PP#1 Routine PP care OOB, ambulate Cont methadone 90mg Social work consult D/C to home tomorrow Mary Ann Amaro MD
[2018-12-10] MEDS: PRENATAL VITAMINS W/ FOLIC ACID TABLET (FP) PO SCH (09:54)
[2018-12-10] MEDS ORDERED: SENNOSIDES/DOCUSATE COMBO (SENNA PLUS) TABLET (UD) PO PRN (22:00)
[2018-12-11] MEDS ORDERED: METHADONE HCL 10 MG TABLET ONE (05:42)
[2018-12-11] MEDS ORDERED: METHADONE HCL 40 MG DISPERSABLE TABLET ONE (05:43)
[2018-12-11] MEDS: METHADONE 10 MG, METHADONE 80 MG PO SCH (05:48)
[2018-12-11] MEDS: PRENATAL VITAMINS W/ FOLIC ACID TABLET (FP) PO SCH (09:17)
--- NOTE | 2018-12-11 10:32 | DS ---
Physical Examination Vital Signs: Vital Signs Temperature 98.3 F 12/10/18 22:00 Pulse Rate 69 12/10/18 22:00 Respiratory Rate 18 12/10/18 22:00 Blood Pressure 121/76 12/10/18 22:00 O2 Sat by Pulse Oximetry (%) Constitutional: Yes: Well Nourished, No Distress, Calm Eyes: Yes: WNL, Conjunctiva Clear, EOM Intact HENT: Yes: WNL, Atraumatic, Normocephalic Neck: Yes: WNL, Supple, Trachea Midline Cardiovascular: Yes: WNL, Regular Rate and Rhythm Respiratory: Yes: WNL, Regular, CTA Bilaterally Gastrointestinal: Yes: WNL, Normal Bowel Sounds Musculoskeletal: Yes: WNL Extremities: Yes: WNL Edema: No Integumentary: Yes: WNL Neurological: Yes: WNL, Alert, Oriented ...Motor Strength: WNL Psychiatric: Yes: WNL Labs: CBC, BMP 12/10/18 06:15 12/09/18 09:45 Discharge Summary Reason For Visit: LABOR ADMISSION Procedures: Principal: Hospital Course: Patient presented in active labor. She had a precipitous vaginal delivery She met all milestones She was discharged home PPD#2 M. MD Sondra Condition: Stable - Instructions Diet, Activity, Other Instructions: Regular Diet Follow up in 4-6 weeks for your care Referrals: Cameron Singletary MD [Staff Physician] - Disposition: HOME - Home Medications Comprehensive Discharge Medication List: Ambulatory Orders Ferrous Sulfate [Iron] 325 mg PO DAILY 12/09/18 Methadone (Detox) [Dolophine -] 90 mg PO DAILY 12/09/18 Pnv No.95/Ferrous Fum/Folic AC [ Formula] 1 each PO DAILY 12/09/18 Ibuprofen 600 mg PO Q6H PRN #30 tablet 12/10/18
[2018-12-11 12:05] VITALS: BP 117/78; PULSE 75; TEMP 98
== END 2018-12-11 17:00 | disposition home or self-care (01) | DRG 560 ==
LOC: JLDR 08:55 → J3W 12:34
PROVIDERS: ADMIT Obstetrics & Gynecology; ATTEND Obstetrics & Gynecology
PROC: 10E0XZZ Delivery of Products of Conception, External Approach (ICD-10-PCS; principal; 2018-12-09)
DX: O60.23X0 Term delivery with preterm labor, third trimester, not applicable or unspecified (principal); O99.323 Drug use complicating pregnancy, third trimester; Z3A.36 36 weeks gestation of pregnancy; Z37.0 Single live birth
CPT/HCPCS: 36415; 59409; 80048; 85025; 85610; 85730; 86593; 86850; 86900; 86901; 87389

== ENCOUNTER 2022-05-06 11:08 | Emergency (ER) | payer OTHER ==
[2022-05-06 11:44] VITALS: BP 116/78; PULSE 74; RESP 20; TEMP 98.5; BMI 22.1
[2022-05-06] MEDS ORDERED: ONDANSETRON 4 MG/2 ML VIAL IM ONE (13:46)
[2022-05-06] MEDS ORDERED: ONDANSETRON 4 MG/2 ML VIAL ONE (14:21)
== END 2022-05-06 14:33 | disposition left against medical advice (07) ==
LOC: JER 11:08
PROC: 3E023GC Introduction of Other Therapeutic Substance into Muscle, Percutaneous Approach (ICD-10-PCS; principal; 2022-05-06)
DX: R11.2 Nausea with vomiting, unspecified (principal)
CPT/HCPCS: 99284-25

== ENCOUNTER 2023-08-03 21:00 | Emergency (ER) | payer OTHER ==
[2023-08-03 21:19] VITALS: BP 106/67; PULSE 101; RESP 16; TEMP 97.9; BMI 21.2
[2023-08-03] MEDS ORDERED: SODIUM CHLORIDE 0.9% 500 ML INFUS.BAG IV ONE (21:21)
== END 2023-08-03 23:35 | disposition left against medical advice (07) ==
LOC: JER 21:00 → JERFT 21:00
DX: R19.7 Diarrhea, unspecified (principal)
CPT/HCPCS: 99281-25